=== PATIENT | male | born 1995 | race Caucasian/White ===

== ENCOUNTER 2017-03-27 19:39 | Emergency (ER) | payer MEDICARE, MEDICAID ==
[~2017-03-27] VITALS: Ht 175.3 cm; Wt 95.3 kg
[~2017-03-27 19:39] MED LIST: AGM875T PO; AMOX500C2 PO; AMOX500T2 PO; AMOX875T2 PO; BACI28.4 TP; BUDE6HFA IH; BUTA1CAP39 PO; CEPH-507 PO; CLIN300C11 PO; CPR500T PO; CYCL10TA9 PO; CYCL5TAB PO; DOXY100C2 PO; FAMO-119 PO; HYDR-3812 PO; HYDR25SU28 RC; IBUP-1773 PO; LEVO137T2 PO; LVT.1T PO; NAPR-243 PO; NAPR500T PO; NAPR500T3 PO; ONDA-42 SL; ONDA8TAB9 PO; PRD20T PO; PRM5C60 TOP; RISP1TAB2 PO; SALI7GEL TP; SULF-222 PO; SULF1TAB7 PO; THYROID MEDICATION; TRAM50TA2 PO; TRAZ150T42 PO
--- NOTE | 2017-03-27 20:31 | ED Cough/URI ---
General Chief Complaint: Cough/Cold/Flu Symptoms Stated Complaint: SORE THROAT,COUGH,EAR PAIN,FEVER Nursing Triage Note: pt states a week and half ago these symptoms started, was treated at [facility], finished antibiotic treatment. Pt states cough, rt sided head/ear/chest wall pain Source: patient, spouse Exam Limitations: no limitations History of Present Illness Time seen by provider: 20:31 Initial Comments 22-year-old male patient presents to the emergency department with complaints of cough, ear pain, rib pain, and headache beginning approximately a week and a half ago. States he was treated by [facility] with antibiotics. Denies improvement in symptoms. Timing/Duration: getting worse, other (10 days) Severity/Quality: productive cough Prior Episodes/Possible Cause: no prior episodes Modifying Factors: Worse With Antibiotics, Worse With Coughing Allergies and Home Medications Allergies Coded Allergies: No Known Drug Allergies (Unverified , 01/08/13) Home Medications Benzonatate 100 Mg Capsule, 1-2 CAP PO Q8H PRN for COUGH, #30 Ref 0 Prescribed by: MARY KAY JUSTIN on 03/27/172042 Cyclobenzaprine HCl 10 Mg Tablet, 10 MG PO Q8H, #15 Prescribed by: MACO GROSS on 08/18/16 1840 Doxycycline Hyclate 100 Mg Capsule, 100 MG PO BID, #14 Ref 0 Prescribed by: MARY KAY JUSTIN on 03/27/172040 Naproxen 500 Mg Tablet, 500 MG PO BID, #20 Prescribed by: MACO GROSS on 08/18/16 1840 Ondansetron 8 Mg Tab.rapdis, 8 MG PO Q6H PRN for NAUSEA/VOMITING, #10 Prescribed by: FRANDY VALADEZ on 08/20/16 1419 Prednisone 20 Mg Tab, 40 MG PO DAILY, #10 Ref 0 Prescribed by: MARY KAY JUSTIN on 03/27/172040 Constitutional: chills, No fever, malaise EENTM: see HPI Respiratory: see HPI Cardiovascular: no symptoms reported Gastrointestinal: no symptoms reported Musculoskeletal: no symptoms reported Skin: no symptoms reported Psychiatric/Neurological: See HPI, Headache All Other Systems Reviewed Negative Unless Noted: Yes (Negative excepted noted.) Past Etkceiy-Zgbjca-Pugzpt Hx Patient Social History Type Used: Cigarettes Recent Foreign Travel: No Contact w/Someone Who Travel: No Recent Infectious Disease Expo: No Recent Hopitalizations: No Immunizations Up To Date Tetanus Booster (TDap): Less than 5yrs Date of Influenza Vaccine: Jul 22, 2014 Seasonal Allergies Seasonal Allergies: No Surgeries HX Surgeries: Yes (2 fingers/arm surgery.) Surgeries: Orthopedic Respiratory Hx Respiratory Disorders: Yes Respiratory Disorders: Asthma Cardiovascular Hx Cardiac Disorders: No Neurological Hx Neurological Disorders: Yes Neurological Disorders: Headaches /Migraines Reproductive System Hx Reproductive Disorders: No Sexually Transmitted Disease: No HIV/AIDS: No Genitourinary Hx Genitourinary Disorders: No Gastrointestinal Hx Gastrointestinal Disorders: Yes Gastrointestinal Disorders: Gastrointestinal Bleed Musculoskeletal Hx Musculoskeletal Disorders: Yes Musculoskeletal Disorders: Amputee, Chronic Back Pain Endocrine Hx Endocrine Disorders: Yes Endocrine Disorders: Hypothyroidsim HEENT HX ENT Disorders: No Cancer Hx Cancer: No Psychosocial Hx Psychiatric Problems: Yes Behavioral Health Disorders: Anxiety, Bipolar, Violent Behavior, Depression Integumentary HX Skin/Integumentary Disorder: No Blood Transfusions Hx Blood Disorders: No Adverse Reaction to a Blood Tr: No Reviewed Nursing Assessment Reviewed/Agree w Nursing PMH: Yes Family Medical History Significant Family History: No Pertinent Family Hx Physical Exam Vital Signs Vital Sign - Last 12Hours 03/27/17 03/27/17 19:55 21:05 Temp 98.7 Pulse 86 Resp 20 B/P (MAP) 153/96 Pulse Ox 97 O2 Delivery Room Air Capillary Refill : Greater Than 3 Seconds General Appearance: WD/WN, no apparent distress HEENT: PERRL/EOMI, TMs normal, pharyngeal erythema, other (positive nasal congestion. Sinuses nontender.) Neck: non-tender, full range of motion, supple, lymphadenopathy (R), lymphadenopathy (L) Respiratory: no respiratory distress, wheezing, expiration, other (generalized right-sided rib tenderness.) Cardiovascular: normal peripheral pulses, regular rate, rhythm, no murmur Gastrointestinal: normal bowel sounds, non tender, soft Extremities: normal capillary refill Neurologic/Psychiatric: alert, normal mood/affect, oriented x 3 Skin: normal color, warm/dry Laceration Repair : Suture Size: 4-0 Progress/Results/Core Measures Results/Orders Lab Results Laboratory Tests Test 03/27/17 20:01 Range/Units Group A Streptococcus Screen NEGATIVE NEGATIVE Micro Results Microbiology 03/27/17 Throat Culture - Final, Complete Strep, Beta Hemolytic Group C Normal aneesh My Orders Orders - MARY KAY JUSTIN Rapid Strep A Screen (03/27/17 19:50) Rx-Albuterol Inhaler (Rx-Ventolin Hfa) (03/27/17 20:43) Rx-Doxycycline Tablet (Rx-Vibramycin Tab (03/27/17 20:43) Dexamethasone Pf Injection (Decadron Pf (03/27/17 20:43) Benzonatate Capsule (Tessalon Perles) (03/27/17 20:45) Im/Sub-Q Injection Non-Ab Ed (03/27/17 ) Vital Signs/I&O Vital Sign - Last 12Hours 03/27/17 03/27/17 19:55 21:05 Temp 98.7 Pulse 86 73 Resp 20 20 B/P (MAP) 153/96 Pulse Ox 97 O2 Delivery Room Air Room Air Blood Pressure Mean: 115 Departure Communication Progress Notes Patient seen and evaluated. Plan for discharge to home. Patient given a prescription for Tessalon Perles, prednisone, doxycycline. Patient sent with a take-home pack of albuterol and doxycycline. Impression Impression: Primary Impression: Bronchitis Disposition: 01 HOME, SELF-CARE Condition: Improved Departure-Patient Inst. Decision time for Depature: 20:39 Referrals: [facility] (PCP/Family) Primary Care Physician Patient Instructions: Acute Bronchitis, Adult (DC) Add. Discharge Instructions: All discharge instructions reviewed with patient and/or family. Voiced understanding. Medications as directed. Afrin nasal spray [id number] as directed for nasal congestion. Tylenol extra strength [id number] as directed. Ibuprofen 800 mg by mouth every 8 hours as needed. Avoid smoking. Cool humidifier. Follow-up with your family practitioner if no improvement in symptoms. Return to the emergency department for worsened symptoms or any other concerns. Scripts Benzonatate (Tessalon Perle) 100 Mg Capsule 1-2 CAP PO Q8H Y for COUGH, #30 CAP 0 Refills Prov: MARY KAY JUSTIN 03/27/17 Prednisone (Prednisone) 20 Mg Tab 40 MG PO DAILY, #10 TAB 0 Refills Prov: MARY KAY JUSTIN 03/27/17 Doxycycline Hyclate (Doxycycline Hyclate) 100 Mg Capsule 100 MG PO BID, #14 CAP 0 Refills Prov: MARY KAY JUSTIN 03/27/17 MARY KAY JUSTIN 4, 2017 20:31
[2017-03-27] MEDS ORDERED: PRD20T PO (20:41)
[2017-03-27] MEDS ORDERED: DOXY100C2 PO (20:41)
[2017-03-27] MEDS ORDERED: RX-ALBUTEROL INHALER (VENTOLIN HFA) 18 GM IH STA (20:43)
[2017-03-27] MEDS ORDERED: RX-DOXYCYCLINE 100 MG (VIBRAMYCIN) TAB PPK#2 PO STA (20:43)
[2017-03-27] MEDS ORDERED: BENZ-13 PO (20:43)
[2017-03-27] MEDS ORDERED: DEXAMETHASONE PF 10 MG/ML (DECADRON) VIAL IM STA (20:43)
[2017-03-27] MEDS ORDERED: BENZONATATE 100 MG (TESSALON) CAPSULE PO ONE (20:45)
[2017-03-27 21:05] VITALS: BP 145/80
--- OUTSIDE RECORDS SUMMARY | 2017-03-28 17:21 | XMS REPORT ---
Author Author ALISHA SHIPMAN eClinicalWorks Address Unknown Phone Unavailable Care Team Providers Care Asbestos Hazard Abatement Worker Name Role Phone ALISHA SHIPMAN CP Unavailable Allergies, Adverse Reactions, Alerts Substance Reaction Event Type Hydrocodone Failed UDS at hospital. pos for THC. -[place] Non Drug Allergy Amphetamine Failed UDS at hospital. pos for THC. -J[place] Non Drug Allergy Benzodiazepines Failed UDS at hospital. pos for THC. -J[place] Non Drug Allergy Problems Problem Type Condition Code Onset Dates Condition Status Problem Cervicalgia 723.1 Active Problem Head injury, unspecified 959.01 Active Problem Hypothyroidism 244.9 Active Assessment Dental examination Z01.20 Active Problem Unspecified conjunctivitis 372.30 Active Problem Screening for thyroid disorder V77.0 Active Medications Medication Code System Code Instructions Start Date End Date Status Dosage Levothyroxine Sodium [facility] [address]-96 100 MCG Orally Once a day February 23, 2015 1 tablet Amoxicillin [facility] [address]-90 500 MG Orally Three times a day Aug 25, 2015 Sep 01, 2015 1 capsule Procedures Procedure Coding System Code Date LTD ORAL EVALUATION - PROBLEM FOCUS CPT-4 D0140 Aug 25, 2015 Vital Signs Date/Time: Aug 25, 2015 Blood Pressure Diastolic 93 mmHg Blood Pressure Systolic 134 mmHg Results No Known Results Summary Purpose eClinicalWorks Submission
--- OUTSIDE RECORDS SUMMARY | 2017-03-28 17:22 | XMS REPORT ---
Author Author RONALD HARDEN [facility] eClinicalWorks Address Unknown Phone Unavailable Care Team Providers Care Aids Counselor Name Role Phone RONALD HARDEN CP Unavailable Allergies, Adverse Reactions, Alerts Substance [...] 244.9 Active Assessment Dental examination Z01.20 Active Assessment Dental caries K02.9 Active Problem Unspecified conjunctivitis 372.30 Active Problem Screening for thyroid disorder V77.0 Active Medications Medication Code System Code Instructions Start Date End Date Status Dosage Levothyroxine Sodium [facility] [address]-75 100 MCG Orally Once a day 1 tablet Levothyroxine Sodium [facility] [address]-93 100 MCG Orally Once a day February 23, 2015 1 tablet Motrin IB [facility] [address]-97 800 mg Orally every 6 hrs 1 tablet Procedures Procedure Coding System Code Date INTRAORL-PERIAPICAL 1 FILM 14543 CPT-4 D0220 Aug 16, 2015 BITEWING - SINGLE FILM CPT-4 D0270 Aug 16, 2015 LTD ORAL EVALUATION - PROBLEM FOCUS CPT-4 D0140 Aug 16, 2015 SURG REMOVAL ERUPTED TOOTH CPT-4 D7210 Aug 16, 2015 Vital Signs Date/Time: Aug 16, 2015 Blood Pressure Diastolic 77 mmHg Blood Pressure Systolic 129 mmHg Results No Known Results Summary Purpose eClinicalWorks Submission
--- OUTSIDE RECORDS SUMMARY | 2017-03-28 17:22 | XMS REPORT ---
Author Author ANA ROSA YAP [facility] eClinicalWorks Address Unknown Phone Unavailable Care Team Providers Care Guideman Name Role Phone ANA ROSA YAP CP Unavailable Allergies, Adverse Reactions, Alerts Substance [...] 959.01 Active Problem Hypothyroidism 244.9 Active Assessment Otitis media, right H66.91 Active Assessment Tooth pain K08.8 Active Problem Unspecified conjunctivitis 372.30 Active Problem Screening for thyroid disorder V77.0 Active Medications Medication Code System Code Instructions Start Date End Date Status Dosage Keflex [facility] [address]-68 500 MG Orally three times day Sep 29, 2015Sep 1 capsule Ibuprofen [facility] [address]-33 800 MG Orally Three times a day Sep 29, 2015 Oct 29, 2015 1 tablet Levothyroxine Sodium [facility] [address]-05 100 MCG Orally Once a day February 23, 2015 1 tablet Procedures Procedure Coding System Code Date Office Visit, Est Pt., Level 3 CPT-4 33547 Sep 29, 2015 Vital Signs Date/Time: Sep 29, 2015 Temperature 98.9 F Weight 243.6 lbs Height 68 in BMI 37.04 Index Blood Pressure Diastolic 82 mmHg Blood Pressure Systolic 124 mmHg Cardiac Monitoring Heart Rate 76 bpm Results No Known Results Summary Purpose eClinicalWorks Submission
== END 2017-03-27 21:05 | disposition home or self-care (01) ==
LOC: EDUNIT# 19:39 → ER 19:42
DX: J40 Bronchitis, not specified as acute or chronic (principal); E03.9 Hypothyroidism, unspecified; J45.909 Unspecified asthma, uncomplicated; G43.909 Migraine, unspecified, not intractable, without status migrainosus; F31.9 Bipolar disorder, unspecified; F41.9 Anxiety disorder, unspecified; R45.6 Violent behavior; G89.29 Other chronic pain; M54.9 Dorsalgia, unspecified; Z98.890 Other specified postprocedural states; Z89.9 Acquired absence of limb, unspecified
CPT/HCPCS: 87430; 96372; 99284

== ENCOUNTER 2018-05-01 20:03 | Emergency (ER) | payer MEDICARE, MEDICAID ==
[~2018-05-01] VITALS: Ht 172.7 cm; Wt 86.2 kg
[~2018-05-01 20:03] MED LIST changes: +ACHD5005 PO; +BENZ-13 PO; -HYDR-3812 PO; +NAPR-1071 PO; +NAPR-915 PO; -NAPR500T PO; -NAPR500T3 PO
--- NOTE | 2018-05-01 20:38 | ED Head Injury ---
General Stated Complaint: CONCUSSION Source: patient Exam Limitations: no limitations History of Present Illness Date Seen by Provider: May 01, 2018 Time Seen by Provider: 20:34 Initial Comments To ER with concerns of a concussion. He fell at home striking the front of his head on the porch step. He is alert but his does all the talking and reports that he did lose consciousness and that he was confused. He is already under the care of a neurologist for chronic head and neck pain and has had MRI of the head and cervical spine without results according to the . The also reports that he vomited once before coming here. Occurred: just prior to arrival Severity: moderate Method of Injury: fell Loss of Consciousness: unsure Associated Systoms: Headaches, Nausea/Vomiting Allergies and Home Medications Allergies Coded Allergies: No Known Drug Allergies (Unverified , 01/08/13) Home Medications Benzonatate 100 Mg Capsule, 1-2 CAP PO Q8H PRN for COUGH Prescribed by: MARY KAY JUSTIN on 03/27/172042 Cyclobenzaprine HCl 10 Mg Tablet, 10 MG PO Q8H Prescribed by: MACO GROSS on 08/18/16 184 Doxycycline Hyclate 100 Mg Capsule, 100 MG PO BID Prescribed by: MARY KAY JUSTIN on 03/27/172040 Naproxen 500 Mg Tablet, 500 MG PO BID Prescribed by: MACO GROSS on 08/18/161839 Ondansetron 8 Mg Tab.rapdis, 8 MG PO Q6H PRN for NAUSEA/VOMITING Prescribed by: FRANDY VALADEZ on 08/20/16 141 Prednisone 20 Mg Tab, 40 MG PO DAILY Prescribed by: MARY KAY JUSTIN on 03/27/172040 Patient Home Medication List Home Medication List Reviewed: Yes Review of Systems Constitutional: see HPI Eyes: No Symptoms Reported Ears, Nose, Mouth, Throat: no symptoms reported Respiratory: no symptoms reported Cardiovascular: no symptoms reported Genitourinary: no symptoms reported Musculoskeletal: no symptoms reported Skin: no symptoms reported Psychiatric/Neurological: See HPI, Headache Past Txqejef-Edeazj-Olocqp Hx Patient Social History Alcohol Beverage of Choice: Beer Type Used: Cigarettes Recent Hopitalizations: No Immunizations Up To Date Tetanus Booster (TDap): Less than 5yrs Date of Influenza Vaccine: Jul 22, 2014 Seasonal Allergies Seasonal Allergies: No Past Medical History Orthopedic Asthma Headaches /Migraines Reproductive Disorders: No Sexually Transmitted Disease: No HIV/AIDS: No Gastrointestinal Bleed Amputee, Chronic Back Pain Hypothyroidsim Anxiety, Bipolar, Violent Behavior, Depression Adverse Reaction/Blood Tranf: No Family Medical History No Pertinent Family Hx Physical Exam Vital Signs Capillary Refill : Height, Weight, BMI Height: 5'9.00" Weight: 210lbs. oz. 95.542075ln; 31.01 BMI Method:Estimated General Appearance: WD/WN, no apparent distress HEENT: PERRL/EOMI, normal ENT inspection, TMs normal, other (he does have a hematoma to the center of his forehead inferior to the hairline) Neck: non-tender, full range of motion Cardiovascular: regular rate, rhythm, no murmur Respiratory: normal breath sounds, no respiratory distress, no accessory muscle use Gastrointestinal: normal bowel sounds, non tender Extremities: normal range of motion, non-tender Psychiatric: alert, oriented x 3 Crainal Nerves: normal hearing, normal speech, PERRL Skin: normal color, warm/dry Preston Coma Score Best Eye Response: (4) Open Spontaneously Best Verbal Response: (5) Oriented Best Motor Response: (6) Obeys Commands Jone Total: 15 Procedures/Interventions Suture Size: 4-0 Progress/Results/Core Measures Results/Orders My Orders Orders - FRANDY VALADEZ APRN Ct Head Wo (05/01/18 20:31) Departure Impression Primary Impression: Concussion Disposition: 01 HOME, SELF-CARE Condition: Stable Departure-Patient Inst. Decision time for Depature: 20:37 Referrals: [facility] (PCP/Family) Primary Care Physician Patient Instructions: Concussion in Adults Add. Discharge Instructions: Tylenol as needed for headaches 2. Follow-up with your neurologist next week 3. Work/School Note: Work Release Form Date Seen in the Emergency Department: May 01, 2018 Return to Work: May 03, 2018 FRANDY VALADEZ APRN May 01, 2018 20:38
[2018-05-01] MEDS ORDERED: Tegretol (20:50)
--- NOTE | 2018-05-01 20:52 | Diagnostic Imaging Report ---
PROCEDURE: CT head without contrast. TECHNIQUE: Multiple contiguous axial images were obtained through the brain without the use of intravenous contrast. INDICATION: Fall, head injury, loss of consciousness COMPARISON: 05/02/2015 FINDINGS: The cortical sulci and ventricles are age-appropriate. There is no midline shift or mass effect. No acute territorial ischemia is seen. There is no acute intracranial hemorrhage. No calvarium fracture is seen. IMPRESSION: 1. No acute intracranial hemorrhage or calvarium fracture. Dictated by: Dictated on workstation # [id number]
[2018-05-01 20:55] VITALS: BP 144/86
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
== END 2018-05-01 20:55 | disposition home or self-care (01) ==
LOC: EDUNIT# 20:03 → ER 20:04
DX: S06.0X9A Concussion with loss of consciousness of unspecified duration, initial encounter (principal); J45.909 Unspecified asthma, uncomplicated; G43.909 Migraine, unspecified, not intractable, without status migrainosus; E03.9 Hypothyroidism, unspecified; F41.9 Anxiety disorder, unspecified; F31.9 Bipolar disorder, unspecified; R40.2412 Glasgow coma scale score 13-15, at arrival to emergency department; W22.8XXA Striking against or struck by other objects, initial encounter; Y92.009 Unspecified place in unspecified non-institutional (private) residence as the place of occurrence of the external cause
CPT/HCPCS: 70450

== ENCOUNTER 2018-07-16 14:34 | Emergency (ER) | payer MEDICARE, MEDICAID ==
[~2018-07-16] VITALS: Ht 175.3 cm; Wt 104.3 kg
[~2018-07-16 14:34] MED LIST changes: -BENZ-13 PO; +BENZ100C18 PO; +Tegretol
[2018-07-16] MEDS ORDERED: HYDR-4226 PO (14:48)
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
[2018-07-16] MEDS ORDERED: LIDOCAINE 1% INJ 20 ML 20 ML VIAL ONE (14:57)
[2018-07-16] MEDS ORDERED: LIDOCAINE 2% 20 ML (XYLOCAINE) VIAL INJ ONE (15:00)
[2018-07-16] MEDS ORDERED: LIDOCAINE 1% INJ 20 ML 20 ML VIAL INJ ONE (15:00)
--- NOTE | 2018-07-16 15:06 | Diagnostic Imaging Report ---
INDICATION: Right hand injury. TIME OF EXAM: 3:14 PM FINDINGS: There are acute fractures of the mid shafts of the third, fourth and fifth metacarpals. There is mild volar angulation of the distal fracture fragments. No significant displacement is seen. Remaining metacarpals and phalanges are intact. IMPRESSION: Mildly angulated midshaft fourth and fifth metacarpal fractures. Dictated by: Dictated on workstation # [id number]
[2018-07-16] MEDS ORDERED: ONDANSETRON 4 MG (ZOFRAN) ORAL DISSOLVE TAB PO ONE (15:15)
[2018-07-16] MEDS ORDERED: HYDROcodone/APAP 5 MG/325 MG (LORTAB) TAB PO ONE (15:15)
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
[2018-07-16 15:46] VITALS: BP 142/70
--- NOTE | 2018-07-16 16:08 | Diagnostic Imaging Report ---
Clinical indication: Patient post set of the fourth and fifth metacarpal fractures with splint material overlying the region. Exam: X-ray of the right hand, 2 views. Comparison: X-ray of the right hand dated 07/16/2018. Findings: Again seen are transverse fractures involving the mid diaphysis of the fourth and fifth metacarpal bones with slight improved alignment. There is continued mild dorsal apex angulation at the fourth and fifth fracture regions. The fifth metacarpal bone is otherwise in alignment and there is minimal displacement of the fourth metacarpal bone fracture. Splint material is seen overlying the hand. Impression: Interval slight improved alignment of the fourth and fifth metacarpal bone fractures, as described above. There is continued dorsal apex angulation at the fracture regions and minimal displacement of the fourth metacarpal fracture. Dictated by: Dictated on workstation # [id number]
== END 2018-07-16 15:46 | disposition home or self-care (01) ==
LOC: ER 14:34 → EDUNIT# 14:34 → ER 15:46
DX: S62.324A Displaced fracture of shaft of fourth metacarpal bone, right hand, initial encounter for closed fracture (principal); S62.326A Displaced fracture of shaft of fifth metacarpal bone, right hand, initial encounter for closed fracture; J45.909 Unspecified asthma, uncomplicated; G43.909 Migraine, unspecified, not intractable, without status migrainosus; E03.9 Hypothyroidism, unspecified; F41.9 Anxiety disorder, unspecified; F31.9 Bipolar disorder, unspecified; Z87.19 Personal history of other diseases of the digestive system; W22.09XA Striking against other stationary object, initial encounter; Y92.009 Unspecified place in unspecified non-institutional (private) residence as the place of occurrence of the external cause
CPT/HCPCS: 29125; 64450; 73120; 73130

== ENCOUNTER 2018-07-27 04:16 | Emergency (ER) | payer MEDICARE, MEDICAID ==
[~2018-07-27] VITALS: Ht 172.7 cm; Wt 104.3 kg
[~2018-07-27 04:16] MED LIST changes: +HYDR-4226 PO
[2018-07-27] MEDS ORDERED: KETOROLAC 30 MG/ML VIAL IM ONE (04:30)
[2018-07-27] MEDS ORDERED: ONDANSETRON 4 MG/2 ML (SDV) Z0FRAN IM ONE (04:30)
--- NOTE | 2018-07-27 04:37 | ED Abdominal Pain ---
General Stated Complaint: RT SIDE ABD PAIN Source of Information: Patient Exam Limitations: No Limitations History of Present Illness Date Seen by Provider: Jul 27, 2018 Time Seen by Provider: 04:27 Initial Comments The patient presents to ER by private conveyance with chief complaint that last night he started having some left lower quadrant abdominal tenderness. He denies a history of diverticulosis or diverticulitis. He's having no bloody stools. He is constipated and has not had a bowel movement for 3 or 4 days. About a week ago he punched a countertop because he was upset about having to do dishes and resulted in right hand boxer fracture and was put on hydrocodone and Percocet. He ran out yesterday. Before going to bed he took 3 each Tylenol and ibuprofen. He says that that's not helping with the pain THIS morning around 4:00 still having quite a bit of cramping pain in his left lower quadrant and decided to come to the ER. He's not passing any gas right now. He has no fevers or chills but he did have some nausea and vomited once on the way here. He has no history of abdominal trauma or surgeries. He says in the past she's been told he has gallstones but he's never had that worked up outpatient. Allergies and Home Medications Allergies Coded Allergies: No Known Drug Allergies (Unverified , 01/08/13) Home Medications Hydrocodone/Acetaminophen 1 Each Tablet, 1 EACH PO Q6H PRN for PAIN-MODERATE Prescribed by: FRANDY VALADEZ on 07/16/18 0158 Patient Home Medication List Home Medication List Reviewed: Yes Review of Systems Review of Systems Constitutional: No chills, No diaphoresis EENTM: No Blurred Vision, No Double Vision Respiratory: Denies Cough, Denies Shortness of Air Cardiovascular: Denies Chest Pain, Denies Edema, Denies Irregular Heart Rate Gastrointestinal: Denies Abdomen Distended; Abdominal Pain; Denies Blood Streaked Stools; Constipated; Denies Diarrhea; Nausea, Vomiting Genitourinary: Denies Burning, Denies Discharge Musculoskeletal: No back pain, No joint pain Past Uljipry-Gvgodi-Omszdp Hx Patient Social History Alcohol Use: Occasionally Uses Alcohol Beverage of Choice: Beer Recreational Drug Use: Yes Drug of Choice: THC Smoking Status: Current Everyday Smoker Type Used: Cigarettes Recent Foreign Travel: No Contact w/Someone Who Travel: No Recent Hopitalizations: No Immunizations Up To Date Tetanus Booster (TDap): Less than 5yrs Date of Influenza Vaccine: Jul 22, 2014 Seasonal Allergies Seasonal Allergies: No Past Medical History Surgeries: Yes (2 fingers/arm surgery/dental for broken teeth) Orthopedic Respiratory: Yes Asthma Cardiac: No Neurological: Yes Headaches /Migraines Reproductive Disorders: No Sexually Transmitted Disease: No HIV/AIDS: No Genitourinary: No Gastrointestinal: Yes Gastrointestinal Bleed Musculoskeletal: Yes Amputee, Chronic Back Pain Endocrine: Yes Hypothyroidsim HEENT: No Cancer: No Psychosocial: Yes Anxiety, Bipolar, Violent Behavior, Depression Integumentary: No Blood Disorders: No Adverse Reaction/Blood Tranf: No Family Medical History No Pertinent Family Hx Physical Exam Vital Signs Vital Signs - First Documented 07/27/18 04:23 Temp 96.9 Pulse 82 Resp 16 B/P (MAP) 128/86 (100) Pulse Ox 99 O2 Delivery Room Air Capillary Refill : Height/Weight/BMI Height: 5'9.00" Weight: 230lbs. oz. [id number]; 31.01 BMI Method:Stated General Appearance: WD/WN, mild distress HEENT: PERRL/EOMI, pharynx normal Neck: non-tender, normal inspection Respiratory: lungs clear, normal breath sounds, no respiratory distress, no accessory muscle use Cardiovascular: normal peripheral pulses, regular rate, rhythm Gastrointestinal: normal bowel sounds, soft, no organomegaly, tenderness (mild left lower quadrant tenderness) Extremities: normal capillary refill, other (fiberglass cast on the right forearm with good distal pulses, capillary refill, sensation and range of motion of the non-immobilized digits) Neurologic/Psychiatric: alert, oriented x 3 Skin: normal color, warm/dry Procedures/Interventions Suture Size: 4-0 Progress/Results/Core Measures Results/Orders Lab Results Laboratory Tests Test 07/27/18 04:30 07/27/18 04:40 Range/Units Urine Color YELLOW Urine Clarity CLEAR Urine pH 5 5-9 Urine Specific [place] 1.025 H 1.016-1.022 Urine Protein 2+ H NEGATIVE Urine Glucose (UA) NEGATIVE NEGATIVE Urine Ketones NEGATIVE NEGATIVE Urine Nitrite NEGATIVE NEGATIVE Urine Bilirubin NEGATIVE NEGATIVE Urine Urobilinogen 1 NORMAL MG/DL Urine Leukocyte Esterase NEGATIVE NEGATIVE Urine RBC (Auto) 3+ H NEGATIVE Urine RBC 5-10 H /HPF Urine WBC NONE /HPF Urine Squamous Epithelial Cells 2-5 /HPF Urine Crystals NONE /LPF Urine Bacteria NEGATIVE /HPF Urine Casts NONE /LPF Urine Mucus SMALL H /LPF Urine Culture Indicated NO Urine Opiates Screen POSITIVE H NEGATIVE Urine Oxycodone Screen POSITIVE H NEGATIVE Urine Methadone Screen NEGATIVE NEGATIVE Urine Propoxyphene Screen NEGATIVE NEGATIVE Urine Barbiturates Screen NEGATIVE NEGATIVE Ur Tricyclic Antidepressants Screen NEGATIVE NEGATIVE Urine Phencyclidine Screen NEGATIVE NEGATIVE Urine Amphetamines Screen NEGATIVE NEGATIVE Urine Methamphetamines Screen NEGATIVE NEGATIVE Urine Benzodiazepines Screen NEGATIVE NEGATIVE Urine Cocaine Screen NEGATIVE NEGATIVE Urine Cannabinoids Screen POSITIVE H NEGATIVE White Blood Count 10.1 4.3-11.0 10^3/uL Red Blood Count 5.53 4.35-5.85 10^6/uL Hemoglobin 17.0 13.3-17.7 G/DL Hematocrit 47 40-54 % Mean Corpuscular Volume 84 80-99 FL Mean Corpuscular Hemoglobin 31 25-34 PG Mean Corpuscular Hemoglobin Concent 37 H 32-36 G/DL Red Cell Distribution Width 12.5 10.0-14.5 % Platelet Count 205 130-400 10^3/uL Mean Platelet Volume 12.4 H 7.4-10.4 FL Neutrophils (%) (Auto) 71 42-75 % Lymphocytes (%) (Auto) 18 12-44 % Monocytes (%) (Auto) 8 0-12 % Eosinophils (%) (Auto) 3 0-10 % Basophils (%) (Auto) 0 0-10 % Neutrophils # (Auto) 7.2 1.8-7.8 X 10^3 Lymphocytes # (Auto) 1.8 1.0-4.0 X 10^3 Monocytes # (Auto) 0.8 0.0-1.0 X 10^3 Eosinophils # (Auto) 0.3 0.0-0.3 10^3/uL Basophils # (Auto) 0.0 0.0-0.1 10^3/uL Sodium Level 140 135-145 MMOL/L Potassium Level 3.6 3.6-5.0 MMOL/L Chloride Level 103 98-107 MMOL/L Carbon Dioxide Level 24 21-32 MMOL/L Anion Gap 13 5-14 MMOL/L Blood Urea Nitrogen 18 7-18 MG/DL Creatinine 1.46 H 0.60-1.30 MG/DL Estimat Glomerular Filtration Rate 59 BUN/Creatinine Ratio 12 Glucose Level 87 70-105 MG/DL Calcium Level 10.0 8.5-10.1 MG/DL Corrected Calcium 8.5-10.1 MG/DL Total Bilirubin 0.8 0.1-1.0 MG/DL Aspartate Amino Transf (AST/SGOT) 22 5-34 U/L Alanine Aminotransferase (ALT/SGPT) 19 0-55 U/L Alkaline Phosphatase 74 40-136 U/L C-Reactive Protein High Sensitivity 0.73 H 0.00-0.50 MG/DL Total Protein 8.2 6.4-8.2 GM/DL Albumin 5.1 H 3.2-4.5 GM/DL My Orders Orders - ALEX GORDILLO Ketorolac Injection (Toradol Injection) (07/27/18 04:30) Ondansetron Injection (Zofran Injectio (07/27/18 04:30) Cbc With Automated Diff (07/27/18 04:30) Comprehensive Metabolic Panel (07/27/18 04:30) Abdomen/Kub 1view (07/27/18 04:30) Hs C Reactive Protein (07/27/18 04:30) Ua Culture If Indicated (07/27/18 04:30) Drug Screen Stat (Urine) (07/27/18 04:30) Ct Abd/Pelvis Wo(Kidney Stone) (07/27/18 05:16) Medications Given in ED Current Medications Medications Dose Ordered Sig/Victor Manuel Route Start Time Stop Time Status Last Admin Dose Admin Ketorolac Tromethamine 30 mg ONCE ONCE IM 07/27/18 04:30 07/27/18 04:33 DC 07/27/18 04:38 30 MG Ondansetron HCl 4 mg ONCE ONCE IM 07/27/18 04:30 07/27/18 04:33 DC 07/27/18 04:38 4 MG Vital Signs/I&O 07/27/18 04:23 Temp 96.9 Pulse 82 Resp 16 B/P (MAP) 128/86 (100) Pulse Ox 99 O2 Delivery Room Air Progress Progress Note : Time: 04:38 Progress Note The timing of his use of opiates for fracture pain and then sudden withdrawal yesterday coinciding with his constipation makes his symptoms suspicious for being related to opiate withdrawal. We'll start with Toradol, Zofran and some basic labs and a KUB. Gastroenteritis, Colitis, diverticulitis being much less likely we would consider CT scan if there is some evidence of vital sign abnormalities or elevation of the white count. Reviewing CTs from 2013, for years ago there is no mention or evidence of diverticulosis. He does have a history of ileus without mention of etiology. Diagnostic Imaging Diagonstic Imaging: Xray Plain Films/CT/US/NM/MRI: abdomen (KUB 1 view) Reviewed: Reviewed by Me Departure Impression Primary Impression: Ureteral calculus, left Disposition: HOME, SELF-CARE Condition: Improved Departure-Patient Inst. Decision time for Depature: 05:38 Referrals: [facility] [place] (PCP/Family) Primary Care Physician FRANK JACOME MD Patient Instructions: Kidney Stones (DC) Add. Discharge Instructions: Drink lots of fluids. Caffeine is okay. Use ibuprofen 800 mg every 8 hours in addition to hydrocodone one tablet every 6 hours to control the pain. Use the Flomax 1 tablet every night until you pass a kidney stone. Strain your urine every time to try and see if you've passed the stone. Is not unusual to have some pain and blood tinged urine for up to 2-3 days after passing a kidney stone. Use the Keflex one capsule twice a day for the next week and use the Zofran 1 tablet every 6 hours as needed for nausea. If he can't pass the stone by Sunday call Dr. Jacome, urology and request an appointment that day. Scripts Tamsulosin HCl (Flomax) 0.4 Mg Cap 0.4 MG PO HS for 7 Days, #7 CAP 0 Refills Prov: ALEX GORDILLO 07/27/18 Cephalexin (Cephalexin) 500 Mg Tablet 500 MG PO BID for 7 Days, #14 TAB 0 Refills Prov: ALEX GORDILLO 07/27/18 Ondansetron (Ondansetron Odt) 4 Mg Tab.rapdis 4 MG PO Q6H PRN for NAUSEA/VOMITING, #8 TAB 0 Refills Prov: ALEX GORDILLO 07/27/18 Hydrocodone Bit/Acetaminophen (Hydrocodone/Acetaminophen 5/325mg Tablet) 1 Tab Tab 1-2 EACH PO Q6H for PAIN-MODERATE MDD 10, #15 TAB 0 Refills Prov: ALEX GORDILLO 07/27/18 Copy Copies To 1: FRANK JACOME MD, TITUS J Jul 27, 2018 04:37
[2018-07-27 04:50] LABS: BASOPHILS % (AUTO) 0 % (0-10); EOSINOPHILS # (AUTO) 0.3 10^3/uL (0.0-0.3); EOSINOPHILS % (AUTO) 3 % (0-10); HEMATOCRIT 47 % (40-54); LYMPHOCYTES # (AUTO) 1.8 X 10^3 (1.0-4.0); LYMPHOCYTES % (AUTO) 18 % (12-44); MEAN CORPUSCULAR HEMOGLOBIN 31 PG (25-34); MEAN CORPUSCULAR HGB CONC 37 G/DL (32-36); MEAN CORPUSCULAR VOLUME 84 FL (80-99); MEAN PLATELET VOLUME 12.4 FL (7.4-10.4); MONOCYTES # (AUTO) 0.8 X 10^3 (0.0-1.0); MONOCYTES % (AUTO) 8 % (0-12); NEUTROPHILS # (AUTO) 7.2 X 10^3 (1.8-7.8); NEUTROPHILS % (AUTO) 71 % (42-75); PLATELET COUNT 205 10^3/uL (130-400); RED BLOOD COUNT 5.53 10^6/uL (4.35-5.85); RED CELL DISTRIBUTION WIDTH 12.5 % (10.0-14.5); WHITE BLOOD COUNT 10.1 10^3/uL (4.3-11.0)
[2018-07-27 04:53] LABS: BILIRUBIN,URINE NEGATIVE (NEGATIVE); CLARITY,URINE CLEAR; COLOR,URINE YELLOW; GLUCOSE, URINE (UA) NEGATIVE (NEGATIVE); KETONES,URINE NEGATIVE (NEGATIVE); LEUKOCYTE ESTERASE ,URINE NEGATIVE (NEGATIVE); NITRITE,URINE NEGATIVE (NEGATIVE); PH,URINE 5 (5-9); PROTEIN,URINE 2+ (NEGATIVE); UROBILINOGEN,URINE 1 MG/DL (NORMAL)
[2018-07-27 05:02] LABS: AMPHETAMINE SCREEN, URINE NEGATIVE (NEGATIVE); BARBITURATE SCREEN URINE NEGATIVE (NEGATIVE); BENZODIAZEPINES SCREEN URINE NEGATIVE (NEGATIVE); CANNABINOID SCREEN, URINE POSITIVE (NEGATIVE); COCAINE SCREEN URINE NEGATIVE (NEGATIVE); METHADONE STAT NEGATIVE (NEGATIVE); METHAMPHETAMINE SCREEN URINE S NEGATIVE (NEGATIVE); OPIATE SCREEN URINE POSITIVE (NEGATIVE); OXYCODONE STAT POSITIVE (NEGATIVE); PROPOXYPHENE STAT NEGATIVE (NEGATIVE); TRICYCLIC ANTIDEPRESSANTS SCRE NEGATIVE (NEGATIVE)
[2018-07-27 05:03] LABS: BACTERIA,URINE NEGATIVE /HPF
[2018-07-27 05:11] LABS: ALANINE AMINOTRANSFERASE 19 U/L (0-55); ALBUMIN 5.1 GM/DL (3.2-4.5); ALKALINE PHOSPHATASE 74 U/L (40-136); BILIRUBIN,TOTAL 0.8 MG/DL (0.1-1.0); BUN/CREATININE RATIO 12; CARBON DIOXIDE 24 MMOL/L (21-32); CHLORIDE 103 MMOL/L (98-107); CREATININE SERUM 1.46 MG/DL (0.60-1.30); GFR ESTIMATED 59; GLUCOSE 87 MG/DL (70-105); POTASSIUM 3.6 MMOL/L (3.6-5.0); SODIUM 140 MMOL/L (135-145); TOTAL PROTEIN 8.2 GM/DL (6.4-8.2)
[2018-07-27] MEDS ORDERED: TAMS0.4C98 PO (05:45)
[2018-07-27] MEDS ORDERED: ACHD5005 PO (05:45)
[2018-07-27] MEDS ORDERED: ONDA4TAB11 PO (05:45)
[2018-07-27] MEDS ORDERED: CEPH500T PO (05:45)
[2018-07-27 05:53] VITALS: BP 128/86
--- NOTE | 2018-07-27 05:58 | Diagnostic Imaging Report ---
PROCEDURE: CT urinary tract, rule out kidney stone. TECHNIQUE: Multiple contiguous axial images were obtained through the abdomen and pelvis without the use of intravenous contrast. Indication: Abdominal pain. Comparison: 05/31/2014. Discussion: The lung bases are well-aerated. Normal heart size. No pleural or pericardial fluid. The liver, gallbladder, pancreas, stomach, spleen, adrenal glands are unremarkable. Punctate 2 mm nonobstructing bilateral renal calculi. There is mild left hydronephrosis and hydroureter. There is a 3 mm stone within the left ureterovesical junction. Urinary bladder is completely decompressed. Prostate is normal in size. The large and small bowel loops appear within normal limits. The appendix is normal. The aorta is normal in caliber. There is no ascites or pathologically enlarged lymph nodes identified. No acute osseous abnormality identified. Impression: 1. A 3 mm stone within the left uterovesical junction contributing to mild left hydronephrosis and hydroureter. 2. Punctate nonobstructing bilateral renal calculi are also present. Dictated by: Dictated on workstation # [id number]
--- NOTE | 2018-07-27 06:46 | Diagnostic Imaging Report ---
Indication: Generalized abdominal pain. Comparison: None. Discussion: Two views of the abdomen were obtained. The lung bases are well-aerated. Prominent small bowel loop within the left abdomen is nonspecific and could represent focal or sentinel ileus. Underlying pancreatitis or inflammatory process within the left abdomen could give a similar appearance. Findings could be further evaluated with CT, as clinically indicated. No high-grade obstruction, pneumatosis, pneumoperitoneum. No osseous abnormality or pathologic calcification. Impression: 1. Focally dilated small bowel loop within the left abdomen, as described. Dictated by: Dictated on workstation # [id number]
== END 2018-07-27 05:54 | disposition home or self-care (01) ==
LOC: EDUNIT# 04:16 → ER 04:18
DX: N13.2 Hydronephrosis with renal and ureteral calculous obstruction (principal); J45.909 Unspecified asthma, uncomplicated; G43.909 Migraine, unspecified, not intractable, without status migrainosus; E03.9 Hypothyroidism, unspecified; F41.9 Anxiety disorder, unspecified; F31.9 Bipolar disorder, unspecified; F12.10 Cannabis abuse, uncomplicated; F17.210 Nicotine dependence, cigarettes, uncomplicated; Z87.19 Personal history of other diseases of the digestive system
CPT/HCPCS: 36415; 74018; 74176; 80053; 80306; 81000; 85025; 86141; 96372

== ENCOUNTER → 2018-08-10 | Emergency (ER) | payer MEDICARE, MEDICAID ==
[~2018-08-10] MED LIST changes: +CEPH500T PO; +ONDA4TAB11 PO; +TAMS0.4C98 PO
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
== END | disposition left against medical advice (07) ==
LOC: EDUNIT# 05:45 → ER 05:47
DX: R10.9 Unspecified abdominal pain (principal)

== ENCOUNTER 2018-08-16 11:21 | Emergency (ER) | payer MEDICARE, MEDICAID ==
[~2018-08-16] VITALS: Ht 172.7 cm; Wt 90.7 kg
[2018-08-16] MEDS ORDERED: LIDOCAINE/EPI 1%-1:100,000 (XYLOCAINE) 20ML INJ ONE (11:30)
[2018-08-16] MEDS ORDERED: BUPIVACAINE 0.5% 30 ML (SENSORCAINE) VIAL INJ ONE ×2 (11:30→12:00)
[2018-08-16] MEDS ORDERED: NAPR-1071 PO (11:34)
[2018-08-16] MEDS ORDERED: AMOX500C2 PO (11:34)
--- NOTE | 2018-08-16 11:35 | ED EENT ---
History of Present Illness General Stated Complaint: DENTAL PAIN/SWELLING Source: patient Exam Limitations: no limitations History of Present Illness Date Seen by Provider: Aug 16, 2018 Time Seen by Provider: 11:29 Initial Comments Mean she was hydrated she said she heard me say avoid opiate to ER with right- sided dental pain and swelling subjectively. This began intermittently a few weeks ago, constant since yesterday. Timing/Duration: abrupt Severity: moderate Location: dental Associated Symptoms: facial pain/swelling Allergies and Home Medications Allergies Coded Allergies: No Known Drug Allergies (Unverified , 01/08/13) Home Medications Amoxicillin 500 Mg Capsule, 500 MG PO TID Prescribed by: FRANDY VALADEZ on 08/16/18 1134 Cephalexin 500 Mg Tablet, 500 MG PO BID Prescribed by: ALEX GORDILLO on 07/27/18 0545 Hydrocodone Bit/Acetaminophen 1 Tab Tab, 1-2 EACH PO Q6H Prescribed by: ALEX GORDILLO on 07/27/18 0545 Hydrocodone/Acetaminophen 1 Each Tablet, 1 EACH PO Q6H PRN for PAIN-MODERATE Prescribed by: FRANDY VALADEZ on 07/16/18 1448 Naproxen 500 Mg Tablet, 500 MG PO BID Prescribed by: FRANDY VALADEZ on 08/16/18 1134 Ondansetron 4 Mg Tab.rapdis, 4 MG PO Q6H PRN for NAUSEA/VOMITING Prescribed by: ALEX GORDILLO on 07/27/18 0545 Tamsulosin HCl 0.4 Mg Cap, 0.4 MG PO HS Prescribed by: ALEX GORDILLO on 07/27/18 0545 Patient Home Medication List Home Medication List Reviewed: Yes Review of Systems Review of Systems Constitutional: see HPI Eyes: No Symptoms Reported Ears: No Symptoms Reported Nose: no symptoms reported Mouth: see HPI, pain; denies swelling Throat: no symptoms reported Respiratory: no symptoms reported Cardiovascular: no symptoms reported Musculoskeletal: no symptoms reported Skin: no symptoms reported Neurological: No Symptoms Reported Hematologic/Lymphatic: No Symptoms Reported Immunological/Allergic: no symptoms reported Past Nihxccn-Palsdq-Sdfulh Hx Patient Social History Alcohol Beverage of Choice: Beer Drug of Choice: THC Type Used: Cigarettes 2nd Hand Smoke Exposure: Yes Recent Foreign Travel: No Contact w/Someone Who Travel: No Recent Hopitalizations: No Immunizations Up To Date Tetanus Booster (TDap): Less than 5yrs Date of Influenza Vaccine: Jul 22, 2014 Seasonal Allergies Seasonal Allergies: No Past Medical History Surgeries: Yes (2 fingers/arm surgery/dental for broken teeth) Orthopedic Respiratory: Yes Asthma Cardiac: No Neurological: Yes Headaches /Migraines Reproductive Disorders: No Sexually Transmitted Disease: No HIV/AIDS: No Genitourinary: No Gastrointestinal: Yes Gastrointestinal Bleed Musculoskeletal: Yes Amputee, Chronic Back Pain Endocrine: Yes Hypothyroidsim HEENT: No Cancer: No Psychosocial: Yes Anxiety, Bipolar, Violent Behavior, Depression Integumentary: No Blood Disorders: No Adverse Reaction/Blood Tranf: No Family Medical History No Pertinent Family Hx Physical Exam Vital Signs Vital Signs - First Documented 08/16/18 11:25 Temp 96.7 Pulse 54 Resp 18 B/P (MAP) 157/102 (120) Pulse Ox 98 O2 Delivery Room Air Height, Weight, BMI Height: 5'8.00" Weight: 230lbs. oz. 104.111860ov; 31.01 BMI Method:Stated General Appearance: WD/WN, no apparent distress Eyes: bilateral eye normal inspection, bilateral eye PERRL, bilateral eye EOMI Ears: bilateral ear auricle normal, bilateral ear canal normal, bilateral ear TM normal Mouth/Throat: normal mouth inspection, pharynx normal, other (he is edentulous up top. Retains his bottom teeth. Tooth #3132 are carious but there is no swelling around them. There is no objective swelling to any part of the face.) Neck: non-tender, full range of motion Respiratory: normal breath sounds, no respiratory distress, no accessory muscle use Gastrointestinal: normal bowel sounds, non tender Neurologic/Psychiatric: alert, normal mood/affect, oriented x 3 Skin: normal color, warm/dry Procedures/Interventions Suture Size: 4-0 Progress/Results/Core Measures Results/Orders My Orders Orders - FRANDY VALADEZ APRN Lidocaine/Epi 1% 1:100,000 (Xylocaine /E (08/16/18 11:30) Bupivacaine 0.5% Injection (Sensorcaine (08/16/18 11:30) Lidocaine/Epi 2% 1:100,000 (Xylocaine/Ep (08/16/18 12:00) Bupivacaine 0.5% Injection (Sensorcaine (08/16/18 12:00) Vital Signs/I&O 08/16/18 08/16/18 11:25 11:40 Temp 96.7 96.7 Pulse 54 54 Resp 18 18 B/P (MAP) 157/102 (120) 157/102 (120) Pulse Ox 98 98 O2 Delivery Room Air Room Air Departure Communication (Admissions) I did offer an inferior alveolar nerve block but declined on his behalf. 1153- he now would like to try nerve block. Impression Primary Impression: Dental caries Disposition: HOME, SELF-CARE Condition: Stable Departure-Patient Inst. Decision time for Depature: 11:32 Referrals: [facility] [place] (PCP/Family) Primary Care Physician Patient Instructions: Dental Pain Add. Discharge Instructions: 1. Call your dentist on Sunday to make an appointment to be seen 2. Antibiotics and pain medication as directed. You had a prescription for hydrocodone on 07/16 and 07/27 for your kidney stone. With this in mind we should avoid opiates at this time due to the risk of developing tolerance/ addiction. Scripts Naproxen (Naprosyn) 500 Mg Tablet 500 MG PO BID, #20 TAB Prov: FRANDY VALADEZ APRN 08/16/18 Amoxicillin (Amoxicillin) 500 Mg Capsule 500 MG PO TID, #21 CAP Prov: FRANDY VALADEZ APRN 08/16/18 Images Mouth/Nose 1 - Caries FRANDY VALADEZ APRN Aug 16, 2018 11:35
[2018-08-16 11:40] VITALS: BP 157/102
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
[2018-08-16] MEDS ORDERED: LIDOCAINE/EPI 2% 1:100,00 (XYLOCAINE) 20 ML VIAL INJ ONE (12:00)
== END 2018-08-16 11:40 | disposition home or self-care (01) ==
LOC: EDUNIT# 11:21 → ER 11:21
DX: K02.9 Dental caries, unspecified (principal); J45.909 Unspecified asthma, uncomplicated; G43.909 Migraine, unspecified, not intractable, without status migrainosus; F12.10 Cannabis abuse, uncomplicated; E03.9 Hypothyroidism, unspecified; F41.9 Anxiety disorder, unspecified; F31.9 Bipolar disorder, unspecified; Z87.19 Personal history of other diseases of the digestive system
CPT/HCPCS: 99282

== ENCOUNTER 2018-08-18 21:32 | Emergency (ER) | payer MEDICARE, MEDICAID ==
[~2018-08-18] VITALS: Ht 172.7 cm; Wt 90.7 kg
--- NOTE | 2018-08-18 22:26 | ED Upper Extremity ---
General Chief Complaint: Upper Extremity Stated Complaint: FELL AND INJURED RT HAND Source: patient, family Exam Limitations: no limitations History of Present Illness Date Seen by Provider: Aug 18, 2018 Time Seen by Provider: 22:14 Initial Comments Patient presents the ER by private conveyance with chief complaint that he had a fall walking out of his steps just prior to arrival landing backwards on his outstretched right hand. He did not strike his head nor lose consciousness. He' s had no headache or nausea. But he does have a lot of pain and swelling in his right hand. About 2-3 weeks ago he said he punched a counter and broke the bones in his lateral right hand. The hand is now more painful and swollen. He says everything is working the past was Percocet. He says he broke that hand in the past and had have it resected because of deformity. He's worried that he may have displaced the fracture again this time. He is not wearing any kind of brace or splint on it at this point. Allergies and Home Medications Allergies Coded Allergies: No Known Drug Allergies (Unverified , 01/08/13) Home Medications Amoxicillin 500 Mg Capsule, 500 MG PO TID Prescribed by: FRANDY VALADEZ on 08/16/18 1134 Cephalexin 500 Mg Tablet, 500 MG PO BID Prescribed by: ALEX GORDILLO on 07/27/18 0545 Hydrocodone Bit/Acetaminophen 1 Tab Tab, 1-2 EACH PO Q6H Prescribed by: ALEX GORDILLO on 07/27/18 0545 Hydrocodone/Acetaminophen 1 Each Tablet, 1 EACH PO Q6H PRN for PAIN-MODERATE Prescribed by: FRANDY VALADEZ on 07/16/18 1448 Naproxen 500 Mg Tablet, 500 MG PO BID Prescribed by: FRANDY VALADEZ on 08/16/18 1134 Ondansetron 4 Mg Tab.rapdis, 4 MG PO Q6H PRN for NAUSEA/VOMITING Prescribed by: ALEX GORDILLO on 07/27/18 0545 Tamsulosin HCl 0.4 Mg Cap, 0.4 MG PO HS Prescribed by: ALEX GORDILLO on 07/27/18 0545 Patient Home Medication List Home Medication List Reviewed: Yes Review of Systems Constitutional: No chills, No malaise EENTM: No ear pain, No eye pain Respiratory: No cough, No short of breath Cardiovascular: No chest pain, No edema Gastrointestinal: No abdominal pain, No constipation, No nausea Past Imfmfll-Hxtncp-Jmdqtz Hx Patient Social History Alcohol Use: Occasionally Uses Alcohol Beverage of Choice: Beer Recreational Drug Use: Yes Drug of Choice: THC Smoking Status: Current Everyday Smoker Type Used: Cigarettes (0.5 ppd) 2nd Hand Smoke Exposure: Yes Recent Foreign Travel: No Contact w/Someone Who Travel: No Recent Hopitalizations: No Immunizations Up To Date Tetanus Booster (TDap): Less than 5yrs Date of Influenza Vaccine: Jul 22, 2014 Seasonal Allergies Seasonal Allergies: No Past Medical History Surgeries: Yes (2 fingers/arm surgery/dental for broken teeth) Orthopedic Respiratory: Yes Asthma Cardiac: No Neurological: Yes Headaches /Migraines Reproductive Disorders: No Sexually Transmitted Disease: No HIV/AIDS: No Genitourinary: No Gastrointestinal: Yes Gastrointestinal Bleed Musculoskeletal: Yes Amputee, Chronic Back Pain Endocrine: Yes Hypothyroidsim HEENT: No Cancer: No Psychosocial: Yes Anxiety, Bipolar, Violent Behavior, Depression Integumentary: No Blood Disorders: No Adverse Reaction/Blood Tranf: No Family Medical History No Pertinent Family Hx Physical Exam Vital Signs Vital Signs - First Documented 08/18/18 22:14 Temp 98.2 Pulse 107 Resp 20 B/P (MAP) 146/86 (106) Pulse Ox 99 O2 Delivery Room Air Capillary Refill : Height, Weight, BMI Height: 5'8.00" Weight: 200lbs. oz. 90.906290ax; 31.01 BMI Method:Stated General Appearance: WD/WN, no apparent distress HEENT: PERRL/EOMI, pharynx normal Neck: non-tender, full range of motion Cardiovascular: normal peripheral pulses, regular rate, rhythm, no edema Respiratory: lungs clear, normal breath sounds, no respiratory distress, no accessory muscle use Gastrointestinal: non tender, soft Back: normal inspection, no vertebral tenderness Hand: Right, bone tenderness (Over the fourth and fifth metacarpal), limited ROM (Mild limitation to flexion of the third fourth and fifth digits on the right hand), soft tissue tenderness, swelling Neurologic/Tendon: normal sensation, normal motor functions, normal tendon functions, responds to pain, no evidence tendon injury Neurologic/Psychiatric: no motor/sensory deficits (Distal to the swelling and injury in his right hand), alert, oriented x 3 Skin: normal color, warm/dry, other (Capillary refill is brisk less than 2 seconds all 5 digits on the right hand) Procedures/Interventions Suture Size: 4-0 Progress/Results/Core Measures Results/Orders My Orders Orders - ALEX GORDILLO Hand, Right, 3 Views (08/18/18 22:21) Ketorolac Injection (Toradol Injection) (08/18/18 22:45) Vital Signs/I&O 08/18/18 22:14 Temp 98.2 Pulse 107 Resp 20 B/P (MAP) 146/86 (106) Pulse Ox 99 O2 Delivery Room Air Progress Progress Note : Time: 22:25 Progress Note He is declining anything for pain but his said that the only thing that works for the pain in the past was the. Percocets. He is not taking any Tylenol or Motrin. We will get an x-ray of his right hand. He has no distal neurovascular compromise. Diagnostic Imaging Diagonstic Imaging: Xray Plain Films/CT/US/NM/MRI: hand (r) Comments Compared to a hand x-ray from 2 days ago he has a callus formation with fracture of the callus as well as further worsening dorsal angulation about 30 without end to end displacement or comminution. Reviewed: Reviewed by Me Consults : Consults Notes Dr Echevarria, orthopedic surgery. Discussed the previous imaging today's imaging and he says just put him in a cast and have him follow-up in the clinic this week. Departure Impression Primary Impression: Fracture, metacarpal shaft Qualified Codes: S62.354G - Nondisplaced fracture of shaft of fourth metacarpal bone, right hand, subsequent encounter for fracture with delayed healing Additional Impression: Fall (on) (from) other stairs and steps, initial encounter Disposition: HOME, SELF-CARE Condition: Stable Departure-Patient Inst. Decision time for Depature: 23:00 Referrals: [facility] (PCP/Family) Primary Care Physician Patient Instructions: Hand Fracture (DC) Add. Discharge Instructions: Use ice for 20 minutes every 4 hours on the hand. Keep the hand elevated above the level of your heart. Use ibuprofen 600 mg every 8 hours in addition to the hydrocodone for pain relief. Follow-up by calling the orthopedic surgeon tomorrow morning and getting an appointment this week. If you have numbness tingling discoloration, severe swelling or other worrisome features and elevate her hand above the level heart and return to your doctor. Dr Echevarria, Orthopedics [address] [facility] [place] [id number] All discharge instructions reviewed with patient and/or family. Voiced understanding. Scripts Hydrocodone Bit/Acetaminophen (Hydrocodone/Acetaminophen 5/325mg Tablet) 1 Tab Tab 1-2 EACH PO Q6H for PAIN-MODERATE MDD 10, #15 TAB 0 Refills Prov: ALEX GORDILLO 08/18/18 Copy Copies To 1: ISMAEL DE LA O DO ALEX GORDILLO Aug 18, 2018 22:26
[2018-08-18] MEDS ORDERED: KETOROLAC 30 MG/ML VIAL IVP ONE (22:45)
[2018-08-18] MEDS ORDERED: ACHD5005 PO (23:03)
[2018-08-18 23:33] VITALS: BP 146/86
--- NOTE | 2018-08-19 06:48 | Diagnostic Imaging Report ---
INDICATION: Right hand injury with pain. AP, oblique and lateral views of the right hand are obtained with comparison made to study of 07/16/2018. FINDINGS: Partially healed fractures are seen through the midshaft of fourth and fifth metacarpals. There is prominent surrounding callus, however there has been an overall increase in angulation of fracture fragments. No other fracture or malalignment is identified. IMPRESSION: Callus formation about subacute fractures through fourth and fifth metacarpals. Increased angulation may indicate reinjury. No dislocation or new fracture is seen. Dictated by: Dictated on workstation # [id number]
== END 2018-08-18 23:33 | disposition home or self-care (01) ==
LOC: EDUNIT# 21:32 → ER 21:34
DX: S62.324A Displaced fracture of shaft of fourth metacarpal bone, right hand, initial encounter for closed fracture (principal); S62.326A Displaced fracture of shaft of fifth metacarpal bone, right hand, initial encounter for closed fracture; J45.909 Unspecified asthma, uncomplicated; G43.909 Migraine, unspecified, not intractable, without status migrainosus; E03.9 Hypothyroidism, unspecified; F41.9 Anxiety disorder, unspecified; F31.9 Bipolar disorder, unspecified; F12.10 Cannabis abuse, uncomplicated; F17.210 Nicotine dependence, cigarettes, uncomplicated; Z87.19 Personal history of other diseases of the digestive system; W10.8XXA Fall (on) (from) other stairs and steps, initial encounter
CPT/HCPCS: 29105; 73130; 96374

== ENCOUNTER 2018-09-12 20:47 | Emergency (ER) | payer MEDICARE, MEDICAID ==
[~2018-09-12] VITALS: Ht 172.7 cm; Wt 90.7 kg
[2018-09-12] MEDS ORDERED: INDO50CA11 PO (21:45)
[2018-09-12] MEDS ORDERED: INDOMETHACIN 25 MG (INDOCIN) CAP PO ONE (21:45)
--- NOTE | 2018-09-12 21:45 | ED Upper Extremity ---
General Chief Complaint: Upper Extremity Stated Complaint: SHARP PAIN ON SURGICAL SITE Source: patient History of Present Illness Date Seen by Provider: Sep 12, 2018 Time Seen by Provider: 21:35 Initial Comments PT ARRIVES VIA POV FROM HOME PT HAD SURGERY 10 DAYS AGO FOR RIGHT BOXER'S FRACTURE--BY DR. BELL IN [place] ( SEEN HERE 07/16 AND AGAIN 08/16 FOR BOXER'S FRACTURE RIGHT HAND) STATES SINCE THE DAY AFTER SURGERY, HE HAS HAD PAIN "IN 2 SPOTS" ON LEFT FOREARM--SYMPTOMS ARE NO DIFFERENT TODAY HAS NOT SOUGHT CARE AT ANY TIME UNTIL TODAY--STATES HE HAS HIS FIRST FOLLOW UP APPOINTMENT WITH DR. BELL IN 2 WEEKS NO REDNESS OR STREAKS NO SWELLING NO SKIN DISCOLORATION OR BRUISING NO INJURY NO PARESTHESIAS OR MOTOR DEFICITS DID HAVE IV IN LEFT HAND NEAR BASE OF LEFT THUMB--NO PROBLEMS WITH IV, PER PT PT WITH MULTITUDE OF VISITS--MANY FOR PAIN OR INJURY RELATED COMPLAINTS--8 VISITS IN 2018 PCP: SHARRON-LENO Allergies and Home Medications Allergies Coded Allergies: No Known Drug Allergies (Unverified , 01/08/13) Home Medications Amoxicillin 500 Mg Capsule, 500 MG PO TID Prescribed by: FRANDY VALADEZ on 08/16/18 1134 Cephalexin 500 Mg Tablet, 500 MG PO BID Prescribed by: ALEX GORDILLO on 07/27/18 0545 Hydrocodone Bit/Acetaminophen 1 Tab Tab, 1-2 EACH PO Q6H Prescribed by: ALEX GORDILLO on 07/27/18 0545 Hydrocodone Bit/Acetaminophen 1 Tab Tab, 1-2 EACH PO Q6H Prescribed by: ALEX GORDILLO on 08/18/18 2303 Hydrocodone/Acetaminophen 1 Each Tablet, 1 EACH PO Q6H PRN for PAIN-MODERATE Prescribed by: FRANDY VALADEZ on 07/16/18 1448 Indomethacin 50 Mg Capsule, 50 MG PO TID Prescribed by: MACO GROSS on 09/12/18 2145 Naproxen 500 Mg Tablet, 500 MG PO BID Prescribed by: FRANDY VALADEZ on 08/16/18 1134 Ondansetron 4 Mg Tab.rapdis, 4 MG PO Q6H PRN for NAUSEA/VOMITING Prescribed by: ALEX GORDILLO on 07/27/18 0545 Tamsulosin HCl 0.4 Mg Cap, 0.4 MG PO HS Prescribed by: ALEX GORDILLO on 07/27/18 0545 Patient Home Medication List Home Medication List Reviewed: Yes Review of Systems Constitutional: no symptoms reported Respiratory: no symptoms reported; No dyspnea on exertion, No short of breath Cardiovascular: no symptoms reported; No chest pain Musculoskeletal: see HPI Skin: no symptoms reported Psychiatric/Neurological: No Symptoms Reported Past Pperuhf-Zsxezt-Gqbvlp Hx Patient Social History Alcohol Use: Occasionally Uses Alcohol Beverage of Choice: [place] Recreational Drug Use: Yes Drug of Choice: MARIJUANA Smoking Status: Current Everyday Smoker Type Used: Cigarettes 2nd Hand Smoke Exposure: Yes Recent Foreign Travel: No Contact w/Someone Who Travel: No Recent Hopitalizations: No Immunizations Up To Date Tetanus Booster (TDap): Less than 5yrs Date of Influenza Vaccine: Jul 22, 2014 Seasonal Allergies Seasonal Allergies: No Past Medical History Surgeries: Yes (2 fingers/arm surgery/dental for broken teeth; RIGHT HAND BOXER 'S FX 08/2018--DR. BAI) Orthopedic Respiratory: Yes Asthma Cardiac: No Neurological: Yes Headaches /Migraines Reproductive Disorders: No Sexually Transmitted Disease: No HIV/AIDS: No Genitourinary: No Gastrointestinal: Yes Gastrointestinal Bleed Musculoskeletal: Yes Amputee, Chronic Back Pain, Fractures Endocrine: Yes Hypothyroidsim HEENT: No (DENTAL ISSUES) Cancer: No Psychosocial: Yes Anxiety, Bipolar, Violent Behavior, Depression Integumentary: No Blood Disorders: No Adverse Reaction/Blood Tranf: No Family Medical History No Pertinent Family Hx Physical Exam Vital Signs Vital Signs - First Documented 09/12/18 21:25 Temp 96.9 Pulse 76 Resp 18 B/P (MAP) 121/68 (85) Pulse Ox 96 O2 Delivery Room Air Capillary Refill : Height, Weight, BMI Height: 5'8.00" Weight: 200lbs. oz. 90.393418qq; 31.01 BMI Method:Stated General Appearance: WD/WN, no apparent distress, other (DIRTY, MALODOROUS) Cardiovascular: normal peripheral pulses, regular rate, rhythm, no edema Respiratory: normal breath sounds, no respiratory distress Shoulder: normal inspection Elbow/Forearm: Left, pain, soft tissue tenderness (HAS SOME CORDING OF SUPERFICIAL VESSEL JUST PROXIMAL TO SITE OF REPORTED RECENT IV SITE. NO ERYTHEMA , NO WOUNDS/SORES, NO DRAINAGE. NO STREAKS. NO AREAS OF FLUCTUANCE. NO SWELLING NOTED TO HAND OR ARM. DISTAL MOTOR/SENSORY/VASCULAR INTACT) Wrist: Yes normal ROM; No bone tenderness; Yes soft tissue tenderness ( ABOVE ) Hand: Right (RIGHT HAND WITH SPLINT IN PLACE WITH LACEY WRAP), Left (LEFT HAND NORMAL. UNABLE TO IDENTIFY SITE OF RECENT IV IN LEFT HAND) Neurologic/Tendon: normal sensation, normal motor functions, normal tendon functions Neurologic/Psychiatric: associate faculty II-XII nml as tested, no motor/sensory deficits, alert, normal mood/affect, oriented x 3 Skin: normal color, warm/dry, tattoos/piercings (EXTENSIVE TATTOOS) Procedures/Interventions Suture Size: 4-0 Progress/Results/Core Measures Results/Orders My Orders Orders - MACO GROSS DO Indomethacin Capsule (Indocin Capsule) (09/12/18 21:45) Vital Signs/I&O 09/12/18 21:25 Temp 96.9 Pulse 76 Resp 18 B/P (MAP) 121/68 (85) Pulse Ox 96 O2 Delivery Room Air Departure Impression Primary Impression: PHLEBITIS OF LEFT FOREARM Disposition: HOME, SELF-CARE Condition: Stable Departure-Patient Inst. Referrals: [facility] (PCP/Family) Primary Care Physician Patient Instructions: Phlebitis (DC), Superficial Phlebitis Add. Discharge Instructions: MOIST HEAT TO AREA AT 20 MINUTE INTERVALS ELEVATE HAND MUCH POSSIBLE FOLLOW UP WITH [facility] OR DR. BELL THIS WEEK FOR FURTHER CARE All discharge instructions reviewed with patient and/or family. Voiced understanding. Scripts Indomethacin (Indomethacin) 50 Mg Capsule 50 MG PO TID, #15 CAP Prov: MACO GROSS DO 09/12/18 Images Extremities-Upper 1 - Tenderness 2 - Tenderness MACO GROSS DO Sep 12, 2018 21:45
[2018-09-12 22:23] VITALS: BP 121/68
== END 2018-09-12 22:23 | disposition home or self-care (01) ==
LOC: EDUNIT# 20:47 → ER 20:48
DX: I80.8 Phlebitis and thrombophlebitis of other sites (principal); J45.909 Unspecified asthma, uncomplicated; G43.909 Migraine, unspecified, not intractable, without status migrainosus; E03.9 Hypothyroidism, unspecified; F41.9 Anxiety disorder, unspecified; F31.9 Bipolar disorder, unspecified; F12.10 Cannabis abuse, uncomplicated; F17.210 Nicotine dependence, cigarettes, uncomplicated; Z87.19 Personal history of other diseases of the digestive system; Z98.890 Other specified postprocedural states
CPT/HCPCS: 99283

== ENCOUNTER → 2018-11-04 | Emergency (ER) | payer MEDICARE, MEDICAID ==
[~2018-11-04] VITALS: Ht 172.7 cm; Wt 90.7 kg
[~2018-11-04] MED LIST changes: +INDO50CA11 PO; +METH-313 PO
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
[2018-11-04 15:01] VITALS: BP 160/83
== END | disposition home or self-care (01) ==
LOC: EDUNIT# 14:40 → ER 14:41
DX: S03.40XA Sprain of jaw, unspecified side, initial encounter (principal); J45.909 Unspecified asthma, uncomplicated; E03.9 Hypothyroidism, unspecified; F41.9 Anxiety disorder, unspecified; F31.9 Bipolar disorder, unspecified; G43.909 Migraine, unspecified, not intractable, without status migrainosus; Z77.22 Contact with and (suspected) exposure to environmental tobacco smoke (acute) (chronic); Z87.19 Personal history of other diseases of the digestive system; W22.09XA Striking against other stationary object, initial encounter
CPT/HCPCS: 99281

== ENCOUNTER 2019-02-11 11:17 | Emergency (ER) | payer MEDICARE, MEDICAID ==
[~2019-02-11] VITALS: Ht 175.3 cm; Wt 82.6 kg
[2019-02-11] MEDS ORDERED: BENZ100C18 PO (11:29)
[2019-02-11] MEDS ORDERED: PRD20T PO (11:29)
--- NOTE | 2019-02-11 11:29 | ED Cough/URI ---
General Chief Complaint: Cough/Cold/Flu Symptoms Stated Complaint: SNEEZING, SORE THROAT, SNFFING Source: patient Exam Limitations: no limitations History of Present Illness Date Seen by Provider: February 11, 2019 Time Seen by Provider: 11:25 Initial Comments To ER with a one-week history of sneezing sore throat sniffing and coughing. Timing/Duration: week Severity/Quality: moderate Associated Symptoms: cough Allergies and Home Medications Allergies Coded Allergies: No Known Drug Allergies (Unverified , 11/04/18) Home Medications Amoxicillin 500 Mg Capsule, 500 MG PO TID Prescribed by: FRANDY VALADEZ on 08/16/18 113 Cephalexin 500 Mg Tablet, 500 MG PO BID Prescribed by: ALEX GORDILLO on 07/27/1845 Hydrocodone Bit/Acetaminophen 1 Tab Tab, 1-2 EACH PO Q6H Prescribed by: ALEX GORDILLO on 07/27/1845 Hydrocodone Bit/Acetaminophen 1 Tab Tab, 1-2 EACH PO Q6H Prescribed by: ALEX GORDILLO on 08/18/18 2303 Hydrocodone/Acetaminophen 1 Each Tablet, 1 EACH PO Q6H PRN for PAIN-MODERATE Prescribed by: FRANDY VALADEZ on 07/16/18 1448 Indomethacin 50 Mg Capsule, 50 MG PO TID Prescribed by: MACO GROSS on 09/12/18 2145 Methocarbamol 750 Mg Tablet, 750 MG PO Q4H PRN for PAIN-MODERATE TO SEVERE Prescribed by: FRANDY VALADEZ on 11/04/18 1458 Naproxen 500 Mg Tablet, 500 MG PO BID Prescribed by: FRANDY VALADEZ on 08/16/18 1134 Naproxen 500 Mg Tablet, 500 MG PO BID PRN for PAIN-MODERATE TO SEVERE Prescribed by: FRANDY VALADEZ on 11/04/18 1458 Ondansetron 4 Mg Tab.rapdis, 4 MG PO Q6H PRN for NAUSEA/VOMITING Prescribed by: ALEX GORDILLO on 07/27/18 0545 Tamsulosin HCl 0.4 Mg Cap, 0.4 MG PO HS Prescribed by: ALEX GORDILLO on 07/27/1845 Patient Home Medication List Home Medication List Reviewed: Yes Review of Systems Review of Systems Constitutional: see HPI EENTM: see HPI, throat pain, other (rhinorrhea) Respiratory: see HPI, cough Cardiovascular: no symptoms reported Genitourinary: no symptoms reported Musculoskeletal: no symptoms reported Skin: no symptoms reported Psychiatric/Neurological: No Symptoms Reported Hematologic/Lymphatic: No Symptoms Reported Immunological/Allergic: no symptoms reported Past Judwwzm-Eluffn-Ikguvn Hx Patient Social History Alcohol Beverage of Choice: [place] Drug of Choice: MARIJUA[place] Type Used: Electronic/Vapor 2nd Hand Smoke Exposure: Yes Recent Foreign Travel: No Contact w/Someone Who Travel: No Recent Hopitalizations: No Immunizations Up To Date Tetanus Booster (TDap): Less than 5yrs Date of Influenza Vaccine: Jul 22, 2014 Seasonal Allergies Seasonal Allergies: No Past Medical History Surgeries: Yes Orthopedic Respiratory: Yes Asthma Cardiac: No Neurological: Yes Headaches /Migraines Reproductive Disorders: No Sexually Transmitted Disease: No HIV/AIDS: No Genitourinary: No Gastrointestinal: Yes Gastrointestinal Bleed Musculoskeletal: Yes Amputee, Chronic Back Pain, Fractures Endocrine: Yes Hypothyroidsim HEENT: No (DENTAL ISSUES) Cancer: No Psychosocial: Yes Anxiety, Bipolar, Violent Behavior, Depression Integumentary: No Blood Disorders: No Adverse Reaction/Blood Tranf: No Family Medical History No Pertinent Family Hx Physical Exam Capillary Refill : Height: 5'8.00" Weight: 200lbs. oz. 90.829208my; 31.01 BMI Method:Stated General Appearance: WD/WN, no apparent distress, other (appears anxious, somewhat agitated. Has lost quite a bit of weight since my last encounter with him here in the emergency room when questioned directly about methamphetamine use he denies it. He relates the weight loss to poor appetite from "I just had a in the family".) Eyes: Bilateral Eye Normal Inspection, Bilateral Eye PERRL HEENT: PERRL/EOMI, normal ENT inspection, TMs normal Neck: non-tender, full range of motion Respiratory: normal breath sounds, no respiratory distress, no accessory muscle use Cardiovascular: tachycardia (105) Gastrointestinal: normal bowel sounds, soft Neurologic/Psychiatric: alert, normal mood/affect, oriented x 3 Skin: normal color, warm/dry Procedures/Interventions Suture Size: 4-0 Progress/Results/Core Measures Suspected Sepsis SIRS Temperature: Pulse: Respiratory Rate: Blood Pressure / Mean: Results/Orders Vital Signs/I&O Capillary Refill : Departure Impression Primary Impression: URI (upper respiratory infection) Disposition: 01 HOME, SELF-CARE Condition: Stable Departure-Patient Inst. Decision time for Depature: 11:27 Referrals: [facility] (PCP/Family) Primary Care Physician Patient Instructions: Viral Upper Respiratory Infection, Adult (DC) Scripts Prednisone (Prednisone) 20 Mg Tab 40 MG PO DAILY, #6 TAB Take 3 tabs(60mg)daily, decrease by 1/2 tab(10mg)daily. Prov: FRANDY VALADEZ HUMAN RESOURCES CLERK 02/11/19 Benzonatate (TESSALON PERLES) 100 Mg Capsule 100 MG PO TID PRN for COUGH, #14 CAP Prov: FRANDY VALADEZ HUMAN RESOURCES CLERK 02/11/19 FRANDY VALADEZ APRN February 11, 2019 11:29
[2019-02-11 11:31] VITALS: BP 145/86
== END 2019-02-11 11:31 | disposition home or self-care (01) ==
LOC: EDUNIT# 11:17 → ER 11:19
DX: J06.9 Acute upper respiratory infection, unspecified (principal); J45.909 Unspecified asthma, uncomplicated; G43.909 Migraine, unspecified, not intractable, without status migrainosus; E03.9 Hypothyroidism, unspecified; F41.9 Anxiety disorder, unspecified; F31.9 Bipolar disorder, unspecified; Z87.19 Personal history of other diseases of the digestive system; Z77.22 Contact with and (suspected) exposure to environmental tobacco smoke (acute) (chronic)
CPT/HCPCS: 99282

== ENCOUNTER 2020-10-27 19:21 | Emergency (ER) | payer MEDICARE, MEDICAID ==
[~2020-10-27] VITALS: Ht 175 cm; Wt 110.0 kg
[~2020-10-27 19:21] MED LIST changes: -CLIN300C11 PO; +CLIN300C12 PO; -INDO50CA11 PO; +INDO50CA82 PO; -TAMS0.4C98 PO; +TMSL.4C PO
[2020-10-27] MEDS ORDERED: LACTATED RINGERS 1,000 ML IV ONE (19:37)
[2020-10-27] MEDS ORDERED: ONDANSETRON 4 MG/2 ML (SDV) Z0FRAN ONE (19:38)
[2020-10-27] MEDS ORDERED: ONDA4TAB11 PO (19:55)
--- NOTE | 2020-10-27 19:56 | ED General ---
General Stated Complaint: NAUSEA, VOMITING,DIARRHEA,WEAK,COUGH,CONGESTION Source of Information: Patient Exam Limitations: No Limitations History of Present Illness Date Seen by Provider: Oct 27, 2020 Time Seen by Provider: 19:53 Initial Comments 1 week history of cough nausea vomiting diarrhea. Also has some pain in the right hand after smashing it about a week ago. Has some plates on the right hand. No fevers. Timing/Duration: 1 Week Severity: Moderate Associated Systoms: Denies Symptoms Allergies and Home Medications Allergies Coded Allergies: No Known Drug Allergies (Unverified , 11/04/18) Patient Home Medication List Home Medication List Reviewed: Yes Review of Systems Review of Systems Constitutional: see HPI EENTM: see HPI Respiratory: see HPI, cough Cardiovascular: no symptoms reported Genitourinary: no symptoms reported Musculoskeletal: no symptoms reported Skin: no symptoms reported Psychiatric/Neurological: No Symptoms Reported Hematologic/Lymphatic: No Symptoms Reported Past Hytmvkp-Tabfyy-Kfcvxv Hx Patient Social History Alcohol Beverage of Choice: [place] Drug of Choice: MARIJUANA Type Used: Cigarettes, Electronic/Vapor 2nd Hand Smoke Exposure: Yes Recent Hopitalizations: No Immunizations Up To Date Tetanus Booster (TDap): Less than 5yrs Date of Influenza Vaccine: Jul 22, 2014 Seasonal Allergies Seasonal Allergies: No Past Medical History Surgeries: Yes Orthopedic Respiratory: Yes Asthma Cardiac: No Neurological: Yes Headaches /Migraines Reproductive Disorders: No Sexually Transmitted Disease: No HIV/AIDS: No Genitourinary: No Gastrointestinal: Yes Gastrointestinal Bleed Musculoskeletal: Yes Amputee, Chronic Back Pain, Fractures Endocrine: Yes Hypothyroidsim HEENT: No (DENTAL ISSUES) Cancer: No Psychosocial: Yes Anxiety, Bipolar, Violent Behavior, Depression Integumentary: No Blood Disorders: No Adverse Reaction/Blood Tranf: No Family Medical History No Pertinent Family Hx Physical Exam Vital Signs Capillary Refill : Height, Weight, BMI Height: 5'9.00" Weight: 182lbs. oz. 82.321424zt; 31.01 BMI Method:Actual General Appearance: No Apparent Distress, WD/WN Eyes: Bilateral Eye Normal Inspection, Bilateral Eye PERRL, Bilateral Eye EOMI HEENT: PERRL/EOMI, TMs Normal Neck: Full Range of Motion, Normal Inspection Respiratory: No Accessory Muscle Use, No Respiratory Distress Cardiovascular: Regular Rate, Rhythm, Normal Peripheral Pulses Gastrointestinal: Normal Bowel Sounds, Non Tender, Soft Extremity: Normal Capillary Refill, Normal Inspection Neurologic/Psychiatric: Alert, Oriented x3 Skin: Normal Color, Warm/Dry Procedures/Interventions Suture Size: 4-0 Progress/Results/Core Measures Suspected Sepsis SIRS Temperature: Pulse: Respiratory Rate: Blood Pressure / Mean: Results/Orders My Orders Orders - FRANDY VALADEZ APRN Lactated Ringers (Lr 1000 Ml Iv Solution (10/27/20 19:37) Ondansetron Injection (Zofran Injectio (10/27/20 19:38) Cbc With Automated Diff (10/27/20 19:51) Hs C Reactive Protein (10/27/20 19:51) Comprehensive Metabolic Panel (10/27/20 19:51) Chest 1 View, Ap/Pa Only (10/27/20 19:51) Hand, Right, 3 Views (10/27/20 19:51) Covid 19 Inhouse Test (10/27/20 19:51) Ondansetron Injection (Zofran Injectio (10/27/20 20:00) Lr 1000 Ml Wide Open (10/27/20 20:00) Vital Signs/I&O Capillary Refill : Departure Impression Primary Impression: Viral syndrome Disposition: HOME, SELF-CARE Condition: Stable Departure-Patient Inst. Decision time for Depature: 19:54 Referrals: [facility] (PCP/Family) Primary Care Physician Patient Instructions: VIRAL SYNDROME Add. Discharge Instructions: 1. Return to ER for any concerns 2. Tylenol and ibuprofen for fevers. Nausea medication as directed. You can use [id number] Imodium as needed for diarrhea control. Scripts Ondansetron (Ondansetron Odt) 4 Mg Tab.rapdis 4 MG PO Q4H PRN for NAUSEA/VOMITING, #10 TAB Prov: FRANDY VALADEZ APRN 10/27/20 Work/School Note: Work Release Form Date Seen in the Emergency Department: Oct 27, 2020 Return to Work: Oct 29, 2020 FRANDY VALADEZ APRN Oct 27, 2020 19:56
[2020-10-27] MEDS ORDERED: ONDANSETRON 4 MG/2 ML (SDV) Z0FRAN IVP ONE (20:00)
[2020-10-27] MEDS ORDERED: LACTATED RINGERS 1,000 ML IV SCH (20:00)
[2020-10-27 20:04] LABS: BASOPHILS % (AUTO) 0 % (0-10); EOSINOPHILS # (AUTO) 0.1 10^3/uL (0.0-0.3); EOSINOPHILS % (AUTO) 1 % (0-10); HEMATOCRIT 45 % (40-54); HEMOGLOBIN 15.4 g/dL (13.3-17.7); LYMPHOCYTES # (AUTO) 1.5 10^3/uL (1.0-4.0); LYMPHOCYTES % (AUTO) 20 % (12-44); MEAN CORPUSCULAR HEMOGLOBIN 31 pg (25-34); MEAN CORPUSCULAR HGB CONC 34 g/dL (32-36); MEAN CORPUSCULAR VOLUME 90 fL (80-99); MEAN PLATELET VOLUME 12.4 fL (9.0-12.2); MONOCYTES # (AUTO) 0.5 10^3/uL (0.0-1.0); MONOCYTES % (AUTO) 7 % (0-12); NEUTROPHILS # (AUTO) 5.2 10^3/uL (1.8-7.8); NEUTROPHILS % (AUTO) 72 % (42-75); PLATELET COUNT 179 10^3/uL (130-400); WHITE BLOOD COUNT 7.2 10^3/uL (4.3-11.0)
[2020-10-27 20:15] LABS: ALANINE AMINOTRANSFERASE 19 U/L (0-55); ALBUMIN 4.5 GM/DL (3.2-4.5); ALKALINE PHOSPHATASE 55 U/L (40-136); BUN/CREATININE RATIO 15; CALCIUM 9.2 MG/DL (8.5-10.1); CARBON DIOXIDE 21 MMOL/L (21-32); CHLORIDE 109 MMOL/L (98-107); CREATININE SERUM 1.01 MG/DL (0.60-1.30); GFR ESTIMATED > 60; GLUCOSE 89 MG/DL (70-105); POTASSIUM 4.1 MMOL/L (3.6-5.0); SODIUM 142 MMOL/L (135-145); TOTAL PROTEIN 7.2 GM/DL (6.4-8.2)
[2020-10-27 20:45] VITALS: BP 148/83
--- NOTE | 2020-10-27 21:03 | Diagnostic Imaging Report ---
EXAMINATION: Chest 1 view. HISTORY: Cough. Shortness of breath. Chest pain. COMPARISON: 08/20/2016. FINDINGS: The lung volumes are normal. No focal consolidation is seen. No large pleural effusion or pneumothorax is seen. The cardiomediastinal silhouette is normal in size and contour. No acute osseous abnormality is seen. IMPRESSION: No acute pleuroparenchymal process. Dictated by: Dictated on workstation # [id number]
--- NOTE | 2020-10-27 21:04 | Diagnostic Imaging Report ---
CLINICAL HISTORY: Right hand pain. History of previous fracture. COMPARISON: 08/18/2018. TECHNIQUE: 3 views of the right hand. FINDINGS: There is no acute fracture or dislocation of the right hand. Surgical fixation plates are noted in the 4th and 5th right metacarpals. No evidence of hardware fracture. The surrounding soft tissues are unremarkable. IMPRESSION: 1. No acute fracture or dislocation in the right hand. 2. Surgical fixation plates along the dorsal aspect of the right 4th and 5th metacarpals. No evidence of hardware complication. Dictated by: Dictated on workstation # [id number]
== END 2020-10-27 20:47 | disposition home or self-care (01) ==
LOC: EDUNIT# 19:21 → ER 19:25
DX: B34.9 Viral infection, unspecified (principal); M79.641 Pain in right hand; F17.210 Nicotine dependence, cigarettes, uncomplicated; F17.290 Nicotine dependence, other tobacco product, uncomplicated; Z20.822 Contact with and (suspected) exposure to COVID-19
CPT/HCPCS: 71045; 73130; 80053; 85025; 86141; 99283; U0002; 36415; 87635

== ENCOUNTER 2020-11-03 13:32 | Emergency (ER) | payer MEDICARE, MEDICAID ==
[~2020-11-03] VITALS: Ht 172 cm; Wt 77.0 kg
[2020-11-03 13:40] VITALS: BP 154/92
--- NOTE | 2020-11-03 13:46 | ED General ---
General Stated Complaint: COVID EXPOSURE History of Present Illness Date Seen by Provider: Nov 03, 2020 Time Seen by Provider: 13:40 Initial Comments 25-year-old male presents for Covid testing. Patient was tested around a week ago and was negative. He reports that the person he lives with tested positive yesterday and he does not be tested. He has no new symptoms. He does have complaints of diarrhea for about 3 weeks but that does not seem to be related to Covid. No other systemic complaints. Allergies and Home Medications Allergies Coded Allergies: No Known Drug Allergies (Unverified , 11/04/18) Home Medications Ondansetron 4 Mg Tab.rapdis, 4 MG PO Q4H PRN for NAUSEA/VOMITING Prescribed by: FRANDY VALADEZ on 10/27/201954 Patient Home Medication List Home Medication List Reviewed: Yes Review of Systems Review of Systems Constitutional: no symptoms reported EENTM: no symptoms reported Respiratory: no symptoms reported Cardiovascular: no symptoms reported Gastrointestinal: see HPI Genitourinary: no symptoms reported Musculoskeletal: no symptoms reported Skin: no symptoms reported Psychiatric/Neurological: No Symptoms Reported Past Rrzmuem-Incjdu-Oaqbbq Hx Past Med/Social Hx: Reviewed Nursing Past Med/Soc Hx Patient Social History Alcohol Beverage of Choice: [place] Drug of Choice: MARIJUANA Type Used: Cigarettes, Electronic/Vapor 2nd Hand Smoke Exposure: Yes Recent Hopitalizations: No Immunizations Up To Date Tetanus Booster (TDap): Less than 5yrs Date of Influenza Vaccine: Jul 22, 2014 Seasonal Allergies Seasonal Allergies: No Past Medical History Surgeries: Yes Orthopedic Respiratory: Yes Asthma Cardiac: No Neurological: Yes Headaches /Migraines Reproductive Disorders: No Sexually Transmitted Disease: No HIV/AIDS: No Genitourinary: No Gastrointestinal: Yes Gastrointestinal Bleed Musculoskeletal: Yes Amputee, Chronic Back Pain, Fractures Endocrine: Yes Hypothyroidsim HEENT: No (DENTAL ISSUES) Cancer: No Psychosocial: Yes Anxiety, Bipolar, Violent Behavior, Depression Integumentary: No Blood Disorders: No Adverse Reaction/Blood Tranf: No Family Medical History No Pertinent Family Hx Physical Exam Vital Signs Capillary Refill : Height, Weight, BMI Height: 5'9.00" Weight: 182lbs. oz. 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 Referrals: [facility] (PCP/Family) Primary Care Physician Patient Instructions: Coronavirus Disease 2019 (COVID-19) Overview Work/School Note: Work Release Form Date Seen in the Emergency Department: Nov 03, 2020 Return to Work: Nov 05, 2020 Restrictions: Patient is okay to return to work after results of Covid test. VIPIN MICHAEL DO Nov 03, 2020 13:46
== END 2020-11-03 13:58 | disposition home or self-care (01) ==
LOC: EDUNIT# 13:32 → ER 13:33
DX: Z20.822 Contact with and (suspected) exposure to COVID-19 (principal); Z77.22 Contact with and (suspected) exposure to environmental tobacco smoke (acute) (chronic)
CPT/HCPCS: 87635; 99281

== ENCOUNTER 2021-01-10 18:40 | Emergency (ER) | payer MEDICARE, MEDICAID ==
[~2021-01-10] VITALS: Ht 175 cm; Wt 77.0 kg
--- NOTE | 2021-01-10 19:21 | ED EENT ---
History of Present Illness General Chief Complaint: Eye Problems Stated Complaint: VISION PROBLEMS Nursing Triage Note: bilateral blurred vision x1 hr. reports left sided headache x90min. 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 SEEN BY LOCAL EYE DR, AND HAD NORMAL EXAM. AND "20/20 VISION" STATES PICTURES OF HIS EYES WERE TAKEN AND SENT TO [facility]ASH HELPER IN [place] AND WAS FOUND TO BE NORMAL HAS NOT SEEN AN EYE DR SINCE THEN. NOT HAD ANY PROBLEMS UNTIL TODAY. STATES HE HAS BEEN AT THIS JOB LESS AROUND 90 DAYS. WANTS WORK NOTE PT STATES HE DOES NOT TAKE ANY MEDICATIONS, AND STATES HE DOES NOT HAVE ANY CHRONIC ILLNESSES HOWEVER, PER OLD RECORDS, DOES HAVE HISTORY OF HEADACHES AND HAS HAD SEIZURE IN PAST, WELL CHRONIC BACK PAIN, HYPOTHYROIDISM PT WITH MULTITUDE OF VISITS--MAY FOR PAIN/INJURY-RELATED COMPLAINTS PCP: [facility] Allergies and Home Medications Allergies Coded Allergies: No Known Drug Allergies (Unverified , 11/04/18) Patient Home Medication List Home Medication List Reviewed: Yes Review of Systems Review of Systems Constitutional: see HPI; No chills, No diaphoresis; dizziness; No fever, No malaise, No weakness Eyes: See HPI; Denies Blindness; Blurred Vision, Decreased Acuity; Denies Foreign Body Sensation, Denies Inflammation, Denies Pain, Denies Photophobia, Denies Previous Injury, Denies Shadows, Denies Tunnel Vision; Vision Changes; Denies Contact Lenses, Denies Glasses Ears: No Symptoms Reported; Denies Pain, Denies Tinnitus Nose: no symptoms reported Mouth: no symptoms reported Throat: no symptoms reported Respiratory: no symptoms reported Cardiovascular: no symptoms reported Gastrointestinal: no symptoms reported Musculoskeletal: no symptoms reported; No neck pain Skin: no symptoms reported Neurological: See HPI, Headache; Denies Numbness, Denies Paresthesia, Denies Seizure, Denies Tingling, Denies Tremors, Denies Weakness Hematologic/Lymphatic: No Symptoms Reported Immunological/Allergic: no symptoms reported Past Hdfjgko-Byfaep-Ygbexa Hx Patient Social History Alcohol Use: Occasionally Uses Number of Drinks Today: BB Alcohol Beverage of Choice: [place] Drug of Choice: denies Smoking Status: Current Everyday Smoker Type Used: Cigarettes, Electronic/Vapor, Smokeless Tobacco 2nd Hand Smoke Exposure: Yes Recent Infectious Disease Expo: No Recent Hopitalizations: No Immunizations Up To Date Tetanus Booster (TDap): Less than 5yrs Date of Influenza Vaccine: Jul 22, 2014 Seasonal Allergies Seasonal Allergies: No Past Medical History Surgeries: Yes (dental) Orthopedic Respiratory: Yes Asthma Cardiac: No Neurological: Yes Headaches /Migraines, Seizure Disorder Reproductive Disorders: No Sexually Transmitted Disease: No HIV/AIDS: No Genitourinary: No Gastrointestinal: Yes Gastrointestinal Bleed Musculoskeletal: Yes (SEE BELOW) Amputee, Chronic Back Pain, Fractures Endocrine: Yes Hypothyroidsim HEENT: Yes (DENTAL CARIES/CHRONIC DENTAL COMPLAINTS) Cancer: No Psychosocial: Yes Anxiety, Bipolar, Violent Behavior, Depression Integumentary: No Blood Disorders: No Adverse Reaction/Blood Tranf: No Family Medical History No Pertinent Family Hx SOCIAL HISTORY: -ETOH---"WEEKENDS" PER PT -DRUGS--MARIJUANA -SMOKES 1-2 PPD, PLUS CHEWS TOBACCO PAST SURGICAL HISTORY: -RIGHT HAND BOXER'S FRACTURE REPAIR [address] BELL IN [place] -2 FINGER SURGERIES -ARM SURGERY -DENTAL SURGERY Physical Exam Vital Signs Vital Signs - First Documented 01/10/21 19:03 Temp 36.2 Pulse 79 Resp 18 B/P (MAP) 125/87 (100) Pulse Ox 98 O2 Delivery Room Air Height, Weight, BMI Height: 5'9.00" Weight: 182lbs. oz. 82.608517ow; 25.00 BMI Method:Actual General Appearance: WD/WN, no apparent distress, other (DIRTY, UNKEMPT; WALKS WITHOUT DIFFICULTY. ) Eyes: bilateral eye normal inspection, bilateral eye PERRL, bilateral eye EOMI Ears: bilateral ear auricle normal, bilateral ear canal normal, bilateral ear TM normal Nose: normal inspection Mouth/Throat: pharynx normal, other (POOR DENTITION--EXTENSIVE CARIES/MISSING TEETH) Neck: full range of motion, supple, tender lateral, tender midline, other (DIFFUSE POSTERIOR NECK TENDERNESS. FULL ROM IN ALL DIRECTIONS WITH OUT DIFFICULTY. 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 NORMAL [id number] AND NORMAL [id number] TESTS. ) Skin: normal color, warm/dry, tattoos/piercings (EXTENSIVE TATTOOS) Procedures/Interventions Suture Size: 4-0 Progress/Results/Core Measures Results/Orders Lab Results Laboratory Tests Test 01/10/21 19:20 01/10/21 20:17 Range/Units White Blood Count 7.7 4.3-11.0 10^3/uL Red Blood Count 5.19 4.30-5.52 10^6/uL Hemoglobin 16.1 13.3-17.7 g/dL Hematocrit 46 40-54 % Mean Corpuscular Volume 89 80-99 fL Mean Corpuscular Hemoglobin 31 25-34 pg Mean Corpuscular Hemoglobin Concent 35 32-36 g/dL Red Cell Distribution Width 12.5 10.0-14.5 % Platelet Count 163 130-400 10^3/uL Mean Platelet Volume 12.5 H 9.0-12.2 fL Immature Granulocyte % (Auto) 0 % Neutrophils (%) (Auto) 65 42-75 % Lymphocytes (%) (Auto) 24 12-44 % Monocytes (%) (Auto) 8 0-12 % Eosinophils (%) (Auto) 2 0-10 % Basophils (%) (Auto) 0 0-10 % Neutrophils # (Auto) 5.0 1.8-7.8 10^3/uL Lymphocytes # (Auto) 1.9 1.0-4.0 10^3/uL Monocytes # (Auto) 0.6 0.0-1.0 10^3/uL Eosinophils # (Auto) 0.1 0.0-0.3 10^3/uL Basophils # (Auto) 0.0 0.0-0.1 10^3/uL Immature Granulocyte # (Auto) 0.0 0.0-0.1 10^3/uL Erythrocyte Sedimentation Rate 2 0-15 MM/HR Prothrombin Time 14.0 12.2-14.7 SEC INR Comment 1.0 0.8-1.4 Activated Partial Thromboplast Time 27 24-35 SEC Sodium Level 141 135-145 MMOL/L Potassium Level 3.3 L 3.6-5.0 MMOL/L Chloride Level 107 98-107 MMOL/L Carbon Dioxide Level 23 21-32 MMOL/L Anion Gap 11 5-14 MMOL/L Blood Urea Nitrogen 13 7-18 MG/DL Creatinine 0.98 0.60-1.30 MG/DL Estimat Glomerular Filtration Rate > 60 BUN/Creatinine Ratio 13 Glucose Level 90 70-105 MG/DL Calcium Level 9.0 8.5-10.1 MG/DL Corrected Calcium 8.7 8.5-10.1 MG/DL Magnesium Level 1.9 1.6-2.4 MG/DL Total Bilirubin 1.0 0.1-1.0 MG/DL Aspartate Amino Transf (AST/SGOT) 21 5-34 U/L Alanine Aminotransferase (ALT/SGPT) 23 0-55 U/L Alkaline Phosphatase 62 40-136 U/L Total Protein 7.0 6.4-8.2 GM/DL Albumin 4.4 3.2-4.5 GM/DL TSH Ness Testing 4.06 0.35-4.94 UIU/ML Serum Alcohol < 10 <10 MG/DL Urine Color YELLOW Urine Clarity CLEAR Urine pH 6.5 5-9 Urine Specific [place] 1.025 H 1.016-1.022 Urine Protein TRACE H NEGATIVE Urine Glucose (UA) NEGATIVE NEGATIVE Urine Ketones NEGATIVE NEGATIVE Urine Nitrite NEGATIVE NEGATIVE Urine Bilirubin NEGATIVE NEGATIVE Urine Urobilinogen 1.0 < = 1.0 MG/DL Urine Leukocyte Esterase NEGATIVE NEGATIVE Urine RBC (Auto) NEGATIVE NEGATIVE Urine RBC NONE /HPF Urine WBC NONE /HPF Urine Squamous Epithelial Cells RARE /HPF Urine Crystals NONE /LPF Urine Bacteria TRACE /HPF Urine Casts NONE /LPF Urine Mucus MODERATE H /LPF Urine Culture Indicated NO Urine Opiates Screen NEGATIVE NEGATIVE Urine Oxycodone Screen NEGATIVE NEGATIVE Urine Methadone Screen NEGATIVE NEGATIVE Urine Propoxyphene Screen NEGATIVE NEGATIVE Urine Barbiturates Screen NEGATIVE NEGATIVE Ur Tricyclic Antidepressants Screen NEGATIVE NEGATIVE Urine Phencyclidine Screen NEGATIVE NEGATIVE Urine Amphetamines Screen NEGATIVE NEGATIVE Urine Methamphetamines Screen NEGATIVE NEGATIVE Urine Benzodiazepines Screen NEGATIVE NEGATIVE Urine Cocaine Screen NEGATIVE NEGATIVE Urine Cannabinoids Screen NEGATIVE NEGATIVE My Orders Orders - GINNYMACO Celaya DO Ct Head/Face/Cervical Wo (01/10/21 19:15) Alcohol (01/10/21 19:15) Cbc With Automated Diff (01/10/21 19:15) Comprehensive Metabolic Panel (01/10/21 19:15) Erythrocyte Sedimentation Rate (01/10/21 19:15) Drug Screen Stat (Urine) (01/10/21 19:15) Magnesium (01/10/21:15) Protime With Inr (01/10/21 19:15) Partial Thromboplastin Time (01/10/21 19:15) Ua Culture If Indicated (01/10/21 19:15) Thyroid Analyzer (01/10/21 19:23) Potassium Chloride (Tablet) (Klor Con Ta (01/10/21 20:30) Acetaminophen Tablet (Tylenol Tablet) (01/10/21 20:30) Medications Given in ED Current Medications Medications Dose Ordered Sig/Victor Manuel Route Start Time Stop Time Status Last Admin Dose Admin Acetaminophen 1,000 mg ONCE ONCE PO 01/10/21 20:30 01/10/21 20:31 DC 01/10/21 20:31 1,000 MG Potassium Chloride 20 meq ONCE ONCE PO 01/10/21 20:30 01/10/21 20:31 DC 01/10/21 20:31 20 MEQ Vital Signs/I&O 01/10/21 01/10/21 19:03 20:49 Temp 36.2 36.6 Pulse 79 68 Resp 18 18 B/P (MAP) 125/87 (100) 145/90 (100) Pulse Ox 98 100 O2 Delivery Room Air Room Air Blood Pressure Mean: 100 Progress Progress Note : Progress Note PT STATES HE IS UNABLE TO READ VISION CHART WITH EITHER EYE HOWEVER, PT IS TEXTING/PLAYING ON PHONE THROUGHOUT THE ENTIRE ER STAY ADVISED PT THAT HE NEEDS TO CALL FOR A RIDE, AND HE ADAMANTLY REFUSES. STATES HE IS DRIVING HIMSELF HOME, PT ADVISED OF RISKS OF DRIVING OR OPERATING ANY MACHINERY WITH VISION CHANGES. Diagnostic Imaging Comments CT HEAD/MAXILLOFACIALS/CERVICAL SPINE--PER RADIOLOGIST REPORT AT 2022 IMPRESSION: 1. No hemorrhage or focal intra-axial mass. No CT evidence of large acute territorial ischemia. 2. No acute fracture or dislocation in the cervical spine. 3. No acute facial fractures. Reviewed: Reviewed by Me Departure Communication (Admissions) 2029--MESSAGE LEFT ON DR. NOBLE'S CELL PHONE 2036--SPOKE WITH DR. NOBLE, WILL SEE PT IN OFFICE TOMORROW. Impression Primary Impression: Blurry vision, bilateral Additional Impression: Hypokalemia Disposition: HOME, SELF-CARE Condition: Stable Departure-Patient Inst. Referrals: [facility] (PCP/Family) Primary Care Physician ROMINA NOBLE OD Patient Instructions: How to Care for Your Eyes, Hypokalemia (DC) Add. Discharge Instructions: NO DRIVING!!!!! NO OPERATING ANY MACHINERY!!! FOLLOW WITH DR. NOBLE/DR. HENRIQUEZ/DR. RIVERA TOMORROW FOR FURTHER CARE, RETURN TO ER IF WORSE All discharge instructions reviewed with patient and/or family. Voiced understanding. MACO GROSS DO Jan 10, 2021 19:21
[2021-01-10 19:29] LABS: BASOPHILS % (AUTO) 0 % (0-10); EOSINOPHILS # (AUTO) 0.1 10^3/uL (0.0-0.3); EOSINOPHILS % (AUTO) 2 % (0-10); HEMATOCRIT 46 % (40-54); HEMOGLOBIN 16.1 g/dL (13.3-17.7); LYMPHOCYTES # (AUTO) 1.9 10^3/uL (1.0-4.0); LYMPHOCYTES % (AUTO) 24 % (12-44); MEAN CORPUSCULAR HEMOGLOBIN 31 pg (25-34); MEAN CORPUSCULAR HGB CONC 35 g/dL (32-36); MEAN CORPUSCULAR VOLUME 89 fL (80-99); MEAN PLATELET VOLUME 12.5 fL (9.0-12.2); MONOCYTES # (AUTO) 0.6 10^3/uL (0.0-1.0); MONOCYTES % (AUTO) 8 % (0-12); NEUTROPHILS % (AUTO) 65 % (42-75); PLATELET COUNT 163 10^3/uL (130-400); WHITE BLOOD COUNT 7.7 10^3/uL (4.3-11.0)
[2021-01-10 19:46] LABS: ERYTHROCYTE SEDIMENTATION RATE 2 MM/HR (0-15)
--- NOTE | 2021-01-10 19:49 | Diagnostic Imaging Report ---
PROCEDURE: CT head, face, and cervical spine without contrast. TECHNIQUE: Multiple contiguous axial images were obtained through the head, neck, and facial bones without the use of intravenous contrast. Sagittal and coronal reformations through the cervical spine and facial bones were also performed. Auto Exposure Controls were utilized during the CT exam to meet ALARA standards for radiation dose reduction. INDICATION: Vision problems. History of seizure. Left head pain. COMPARISON: 05/01/2018. FINDINGS: CT head: The ventricles and cortical sulci are age-appropriate. There is no midline shift or mass-effect. No acute intracranial hemorrhage is seen. There is no CT evidence of acute territorial ischemia. No focal masses or collections are present. The calvarium is intact. CT face: No acute facial fractures are visualized. The mandible, zygomatic arches, and pterygoid plates are intact. The bilateral TMJ demonstrate normal articulation. No nasal bone fractures. The bony nasal septum is midline without fracture. A mucus retention cyst is seen in the left maxillary sinus. Otherwise, the paranasal sinuses and mastoid air cells are well pneumatized. The globes and orbits are symmetric and unremarkable. No evidence of orbital rim fracture. CT cervical spine: No acute fracture or dislocation is seen in the cervical spine. No focal osseous lesions. Vertebral body heights are well-maintained. The craniocervical junction is well-maintained. Soft tissues of the neck are unremarkable. The included lung apices are clear. IMPRESSION: 1. No hemorrhage or focal intra-axial mass. No CT evidence of large acute territorial ischemia. 2. No acute fracture or dislocation in the cervical spine. 3. No acute facial fractures. Dictated by: Dictated on workstation # [id number]
[2021-01-10 19:52] LABS: ALANINE AMINOTRANSFERASE 23 U/L (0-55); ALBUMIN 4.4 GM/DL (3.2-4.5); ALKALINE PHOSPHATASE 62 U/L (40-136); BUN/CREATININE RATIO 13; CARBON DIOXIDE 23 MMOL/L (21-32); CHLORIDE 107 MMOL/L (98-107); CREATININE SERUM 0.98 MG/DL (0.60-1.30); GFR ESTIMATED > 60; GLUCOSE 90 MG/DL (70-105); MAGNESIUM 1.9 MG/DL (1.6-2.4); POTASSIUM 3.3 MMOL/L (3.6-5.0); SODIUM 141 MMOL/L (135-145)
[2021-01-10 20:08] LABS: TSH (THYROID ANALYZER) 4.06 UIU/ML (0.35-4.94)
[2021-01-10] MEDS ORDERED: KCL 10 MEQ TAB (MICRO K) PO ONE (20:30)
[2021-01-10] MEDS ORDERED: ACETAMINOPHEN 500 MG TAB (TYLENOL) PO ONE (20:30)
[2021-01-10 20:33] LABS: BILIRUBIN,URINE NEGATIVE (NEGATIVE); CLARITY,URINE CLEAR; COLOR,URINE YELLOW; GLUCOSE, URINE (UA) NEGATIVE (NEGATIVE); KETONES,URINE NEGATIVE (NEGATIVE); LEUKOCYTE ESTERASE ,URINE NEGATIVE (NEGATIVE); NITRITE,URINE NEGATIVE (NEGATIVE); PH,URINE 6.5 (5-9); PROTEIN,URINE TRACE (NEGATIVE)
[2021-01-10 20:39] LABS: BACTERIA,URINE TRACE /HPF; SQUAMOUS EPITHELIAL CELL,UR RARE /HPF
[2021-01-10 20:44] LABS: AMPHETAMINE SCREEN, URINE NEGATIVE (NEGATIVE); BARBITURATE SCREEN URINE NEGATIVE (NEGATIVE); BENZODIAZEPINES SCREEN URINE NEGATIVE (NEGATIVE); CANNABINOID SCREEN, URINE NEGATIVE (NEGATIVE); COCAINE SCREEN URINE NEGATIVE (NEGATIVE); METHADONE STAT NEGATIVE (NEGATIVE); METHAMPHETAMINE SCREEN URINE S NEGATIVE (NEGATIVE); OPIATE SCREEN URINE NEGATIVE (NEGATIVE); OXYCODONE STAT NEGATIVE (NEGATIVE); PROPOXYPHENE STAT NEGATIVE (NEGATIVE); TRICYCLIC ANTIDEPRESSANTS SCRE NEGATIVE (NEGATIVE)
[2021-01-10 20:49] VITALS: BP 145/90
== END 2021-01-10 20:53 | disposition home or self-care (01) ==
LOC: EDUNIT# 18:40 → ER 18:42
DX: H53.8 Other visual disturbances (principal); E87.6 Hypokalemia; J45.909 Unspecified asthma, uncomplicated; F17.210 Nicotine dependence, cigarettes, uncomplicated; F17.290 Nicotine dependence, other tobacco product, uncomplicated
CPT/HCPCS: 70450; 70486; 72125; 80053; 80306; 81000; 83735; 84443; 85025; 85610; 85652; 85730; 99283; G0480; 36415; 80320